=== PATIENT | male | born 1975 | race Caucasian/White ===

== ENCOUNTER 2016-07-01 16:01 | Emergency (ER) | payer OTHER ==
[~2016-07-01] VITALS: Ht 188 cm; Wt 163.3 kg
[~2016-07-01 16:01] MED LIST: ASCO-78 PO; BUPR300T3 PO; CYCL10TA2 PO; IBUP-1060 PO; MULT-245 PO; OXYC-244 PO; ZOLP10TA PO
[2016-07-01 16:43] VITALS: BP 116/59
[2016-07-01] MEDS ORDERED: CYCL10TA2 PO (17:25)
[2016-07-01] MEDS ORDERED: HYDR-971 PO (17:25)
--- NOTE | 2016-07-01 17:25 | PHYS DOC ---
Past Medical History Past Medical History: No Pertinent History Past Surgical History: Other Additional Past Surgical Histo: rotator cuff R shoulder Alcohol Use: None Drug Use: Marijuana Adult General Chief Complaint Chief Complaint: BACK PAIN OR INJURY HPI HPI Patient is a 40 year old male presents the emergency room with a complaint of ongoing, atraumatic back pain since the summer. Patient states he saw his chiropractor at that point for readjustments and felt some relief. Patient states that he saw [facility] on June 29 because of increased pain and tightness in his back and was prescribed hydrocodone and Flexeril for his pain. He states that he was to follow up with his primary care doctor. His primary care doctor's office was not open today. Patient denies any previous back fractures or spinal cord injuries. He states that he does have a history of chronic, recurring back pain without any neurologic involvement. He denies radiation of pain, saddle anesthesia or incontinence of urine or bowel. Review of Systems Review of Systems Constitutional: Denies fever or chills [] Eyes: Denies change in visual acuity, redness, or eye pain [] HENT: Denies nasal congestion or sore throat [] Respiratory: Denies cough or shortness of breath [] Cardiovascular: No additional information not addressed in HPI [] GI: Denies abdominal pain, nausea, vomiting, bloody stools or diarrhea [] : Denies dysuria or hematuria [] Musculoskeletal: Denies back pain or joint pain [] Integument: Denies rash or skin lesions [] Neurologic: Denies headache, focal weakness or sensory changes [] Endocrine: Denies polyuria or polydipsia [] Allergies Allergies Allergies Coded Allergies Type Severity Reaction Last Updated Verified No Known Drug Allergies 07/25/15 No Physical Exam Physical Exam Constitutional: Well developed, well nourished, no acute distress, non-toxic appearance. [] HENT: Normocephalic, atraumatic, bilateral external ears normal, oropharynx moist, no oral exudates, nose normal. [] Eyes: PERRLA, EOMI, conjunctiva normal, no discharge. [] Neck: Normal range of motion, no tenderness, supple, no stridor. [] Cardiovascular:Heart rate regular rhythm, no murmur [] Lungs & Thorax: Bilateral breath sounds clear to auscultation [] Abdomen: Bowel sounds normal, soft, no tenderness, no masses, no pulsatile masses. [] Skin: Warm, dry, no erythema, no rash. [] Back: Back is without any evidence of deformities or skin lesions. There is pant tenderness to patient's back from the level of L1-L5. There is no palpable defect, deformity or active spasm. Extremities: No tenderness, no cyanosis, no clubbing, ROM intact, no edema. [] Neurologic: Alert and oriented X 3, normal motor function, normal sensory function, no focal deficits noted. Patient ambulates with a steady, unaided gait. Psychologic: Affect normal, judgement normal, mood normal. [] Current Patient Data Vital Signs Vital Signs Date Time Temp Pulse Resp B/P Pulse Ox O2 Delivery O2 Flow Rate FiO2 07/01/16 16:43 98.1 76 18 97 Room Air 98.1 EKG EKG [] Radiology/Procedures Radiology/Procedures [] Course & Med Decision Making Course & Med Decision Making Pertinent Labs and Imaging studies reviewed. (See chart for details) [] Dragon Disclaimer Dragon Disclaimer This electronic medical record was generated, in whole or in part, using a voice recognition dictation system. Departure Departure Impression: Primary Impression: Back pain Disposition: 01 HOME, SELF-CARE Condition: GOOD Referrals: DEMETRA WHIPPLE MD (PCP) Patient Instructions: Chronic Back Pain Additional Instructions: 1. Take the medication as prescribed 2. Review the discharge instructions for reasons to return to the emergency department. 3. Call Dr. Whipple office tomorrow morning to schedule follow-up appointment. Scripts Cyclobenzaprine Hcl 10 Mg Tablet1 Tab PO TID #15 TAB Prov:PAKO TY 07/01/16 Hydrocodone/Apap 5-325 ([place] 5-325 Tablet)1 Each Tablet2 Tab PO PRN Q6HRS PRN PAIN #14 TAB Prov:PAKO TY 07/01/16 PAKO TY Jul 01, 2016 17:25
== END 2016-07-01 17:36 | disposition home or self-care (01) ==
LOC: ER 16:01
DX: M54.5 Low back pain (principal); F12.10 Cannabis abuse, uncomplicated
CPT/HCPCS: 99283

== ENCOUNTER 2018-08-29 21:54 | Emergency (ER) | payer SELFPAY ==
[~2018-08-29] VITALS: Ht 182.9 cm; Wt 163.3 kg
[~2018-08-29 21:54] MED LIST changes: +HYDR-3164 PO; -OXYC-244 PO; +OXYC1TAB19 PO
[2018-08-29 22:00] VITALS: BP 157/77
--- NOTE | 2018-08-29 22:33 | PHYS DOC ---
Past Medical History Past Medical History: No Pertinent History (RAVI TORRES APRN) Past Surgical History: Other Additional Past Surgical Histo: rotator cuff R shoulder (RAVI TORRES APRN) Alcohol Use: None Drug Use: Marijuana (RAVI TORRES APRN) Adult General Chief Complaint Chief Complaint: LACERATION/AVULSION HPI HPI Patient is a 43 year old male who presents with left index finger knuckle laceration that occurred while working with an angle machine grinder. Patient is right- handed. (RAVI TORRES APRN) Review of Systems Review of Systems Constitutional: Denies fever or chills [] Musculoskeletal: Left index finger knuckle laceration Integument: Denies rash or skin lesions [] Neurologic: Denies headache, focal weakness or sensory changes [] All other systems were reviewed and found to be within normal limits, except as documented in this note. (RAVI TORRES APRN) Current Medications Current Medications Current Medications Medications (Trade) Dose Ordered Sig/Rebeca Start Time Stop Time Status Last Admin Dose Admin Ceftriaxone Sodium (Rocephin Im) 1 gm 1X ONCE 08/29/18 23:00 08/29/18 23:01 DC 08/29/18 22:45 1 GM Diphtheria/ Tetanus/Acell Pertussis (Boostrix) 0.5 ml ONCE ONCE 08/29/18 23:00 08/29/18 23:01 DC 08/29/18 22:46 0.5 ML Lidocaine HCl (Lidocaine 1% 20ml Vial) 20 ml 1X ONCE 08/29/18 23:00 08/29/18 23:01 DC 08/29/18 22:50 20 ML (BOUBACAR LAW DO) Allergies Allergies Allergies Coded Allergies Type Severity Reaction Last Updated Verified No Known Drug Allergies 07/25/15 No (BOUBACAR LAW DO) Physical Exam Physical Exam Constitutional: Well developed, well nourished, no acute distress, non-toxic appearance. [] Back: No tenderness, no CVA tenderness. [] Extremities: Left index finger knuckle with a laceration approximately 3 cm long , there is obvious tendon disruption. Patient is able to flex and extend the finger. Adequate radial sensation to the left index finger, +2 left radial pulse. Cap refill less than 2 seconds to the left Index finger Neurologic: Alert and oriented X 3, normal motor function, normal sensory function, no focal deficits noted. Psychologic: Affect normal, judgement normal, mood normal. [] (RAVI TORRES APRN) Current Patient Data Vital Signs Vital Signs Date Time Temp Pulse Resp B/P (MAP) Pulse Ox O2 Delivery O2 Flow Rate FiO2 08/29/18 22:00 98.6 89 20 157/77 (103) 98 Room Air 98.6 (BOUBACAR LAW DO) EKG EKG [] (RAVI TORRES APRN) Radiology/Procedures Radiology/Procedures Laceration/Wound Repair Wound Location: Left hand laceration Wound's Depth, Shape horizontal Wound Length (cm): Approximately 4 cm Wound Explored: clean Irrigated w/ Saline (ccs): 1000 Betadine Prep?: Yes Anesthesia: 1% of lidocaine Volume Anesthetic (ccs): Approximately 5 mL Wound Repaired With: Ethilon Suture Size/Type: 5.0/interrupted sutures Number of Sutures: 8 Progress : Wound was covered with nonstick dressing, Velcro splint applied by me. (RAVI TORRES APRN) Course & Med Decision Making Course & Med Decision Making Pertinent Labs and Imaging studies reviewed. (See chart for details) This is a 43-year-old male patient presenting to the ED today with left hand laceration with tendon disruption. Consulted with Dr. Law. Left hand x-rays are negative for any acute findings. Tetanus updated, given Rocephin 1 g in the ED. Discharged with cephalexin. Provided hand surgeon at [facility] to contact and follow-up on Friday. Left hand was placed in a splint by ga, neurovascular exam pre-and post splint application is normal. (RAVI TORRES APRN) Dragon Disclaimer Dragon Disclaimer This electronic medical record was generated, in whole or in part, using a voice recognition dictation system. (RAVI TORRES APRN) Departure Departure Impression: Primary Impression: Laceration of hand Additional Impression: Extensor tendon disruption Disposition: 01 HOME, SELF-CARE Condition: STABLE Referrals: DEMETRA WHIPPLE MD (PCP) Please call hand surgeon on Friday at and set up a follow up appointment Patient Instructions: Laceration Care, Adult Additional Instructions: You have left hand laceration with a tendon tear. Please contact hand surgeon on Friday morning and set up a follow-up appointment. Complete your prescribed antibiotics. Come back to the ED at any point wound condition worsens. Scripts Cephalexin (CEPHALEXIN) 500 Mg Tablet 1 TAB PO QID, #40 TAB Prov: RAVI TORRES OLI 08/29/18 Attending Signature Attending Signature I have reviewed the PA/HOUSING RELOCATION's note and plan of care. I was available for consultation as needed during the patient's visit in the emergency department. I agree with the clinical impression, plan, and disposition. (BOUBACAR LAW DO) Problem Qualifiers Primary Impression: Laceration of hand Encounter type: initial encounter Foreign body presence: without foreign body Laterality: left Qualified Codes: S61.412A - Laceration without foreign body of left hand, initial encounter IDAJOHNNYRAVI APRN Aug 29, 2018 22:33 BOUBACAR LAW DO Aug 30, 2018 04:32
[2018-08-29] MEDS ORDERED: cefTRIAXone IM 1 GM VIAL IM ONE (23:00)
[2018-08-29] MEDS ORDERED: DIPHTH,PERTUSS(ACELL),TET TOX 0.5 ML DISP.SYRIN. VAX IM ONE (23:00)
[2018-08-29] MEDS ORDERED: LIDOCAINE 1% Multi-Dose 20 ML VIAL. INJ ONE (23:00)
--- NOTE | 2018-08-29 23:05 | RAD ---
3 views left hand dated 08/29/2018. No comparison available. CLINICAL INDICATION: Pain after injury. FINDINGS: 3 views left hand show normal bony alignment. No displaced fracture. No acute osseous or articular abnormality. Small soft tissue defect near the second MCP joint without radiopaque foreign body. IMPRESSION: No acute bony abnormality. Electronically signed by: Tom Nielsen MD (08/29/2018 11:02 PM) [facility]
[2018-08-29] MEDS ORDERED: CEPH500T PO (23:55)
== END 2018-08-29 23:58 | disposition home or self-care (01) ==
LOC: ER 21:54
DX: S66.321A Laceration of extensor muscle, fascia and tendon of left index finger at wrist and hand level, initial encounter (principal); W31.89XA Contact with other specified machinery, initial encounter; Y93.89 Activity, other specified; Y92.89 Other specified places as the place of occurrence of the external cause; Y99.0 Civilian activity done for income or pay
CPT/HCPCS: 12002; 73130; 90471; 90715; 96372; 99283; J0696; 99284

== ENCOUNTER 2018-10-26 12:58 | Emergency (ER) | payer SELFPAY ==
[~2018-10-26] VITALS: Ht 188 cm; Wt 139.3 kg
[~2018-10-26 12:58] MED LIST changes: +CEPH500T PO
[2018-10-26 13:32] VITALS: BP 157/77
[2018-10-26] MEDS ORDERED: MORPHINE SULFATE 10 MG/ML VIAL. SQ ONE (14:00)
[2018-10-26] MEDS ORDERED: METH4TAB2 PO (14:04)
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
== END 2018-10-26 14:16 | disposition home or self-care (01) ==
LOC: ER 12:58
DX: M54.42 Lumbago with sciatica, left side (principal); M54.41 Lumbago with sciatica, right side; G89.29 Other chronic pain
CPT/HCPCS: 96372; 99284; J2270

== ENCOUNTER 2018-11-02 20:12 | Emergency (ER) | payer SELFPAY ==
[~2018-11-02] VITALS: Ht 188 cm; Wt 138.3 kg
[~2018-11-02 20:12] MED LIST changes: +METH4TAB2 PO
[2018-11-02 20:30] VITALS: BP 149/80
[2018-11-02] MEDS ORDERED: CYCLOBENZAPRINE 10 MG TABLET. PO ONE (22:30)
--- NOTE | 2018-11-02 22:45 | RAD ---
EXAM: Left shoulder, 3 views. HISTORY: Pain. COMPARISON: None. FINDINGS: 3 views of the left shoulder obtained. There is no fracture, dislocation or subluxation. IMPRESSION: No acute osseous finding. Electronically signed by: Ciera Bruner MD (11/02/2018 10:42 PM) [facility]
[2018-11-02] MEDS ORDERED: AMOX1TAB61 PO (22:55)
--- NOTE | 2018-11-02 22:57 | PHYS DOC ---
Past Medical History Past Medical History: MRSA, Sciatica, Other Additional Past Medical Histor: CHRONIC BACK PAIN Past Surgical History: Other Additional Past Surgical Histo: rotator cuff R shoulder, CARPAL TUNNEL Alcohol Use: None Drug Use: Marijuana Adult General Chief Complaint Chief Complaint: BACK PAIN OR INJURY [facility] HPI Patient is a 43-year-old male who presents with left shoulder pain since yesterday. He describes the pain as throbbing and sharp and rates it 8 out of 10. He denies any associated symptoms however he does state that he is had some ear pain for a week. He has not taken anything prior to arrival. Review of Systems Review of Systems Constitutional: Denies fever or chills [] Eyes: Denies change in visual acuity, redness, or eye pain [] HENT: Denies nasal congestion or sore throat. Reports L ear "clogging". Respiratory: Denies cough or shortness of breath [] Cardiovascular: No additional information not addressed in HPI [] GI: Denies abdominal pain, nausea, vomiting, bloody stools or diarrhea [] : Denies dysuria or hematuria [] Musculoskeletal: Denies back pain. Reports L shoulder pain. Integument: Denies rash or skin lesions [] Neurologic: Denies headache, focal weakness or sensory changes [] Endocrine: Denies polyuria or polydipsia [] Complete systems were reviewed and found to be within normal limits, except as documented in this note. Current Medications Current Medications Current Medications Medications (Trade) Dose Ordered Sig/Rebeca Start Time Stop Time Status Last Admin Dose Admin Cyclobenzaprine HCl (Flexeril) 10 mg 1X ONCE 11/02/18 22:30 11/02/18 22:31 DC 11/02/18 22:45 10 MG Allergies Allergies Allergies Coded Allergies Type Severity Reaction Last Updated Verified No Known Drug Allergies 07/25/15 No Physical Exam Physical Exam Constitutional: Well developed, well nourished, no acute distress, non-toxic appearance. [] HENT: Normocephalic, atraumatic, bilateral external ears normal, L tympanic membrane is bulging and red, oropharynx moist, no oral exudates, nose normal. [] Eyes: PERRLA, EOMI, conjunctiva normal, no discharge. [] Neck: Normal range of motion, no tenderness, supple, no stridor. [] Cardiovascular:Heart rate regular rhythm, no murmur [] Lungs & Thorax: Bilateral breath sounds clear to auscultation [] Abdomen: Bowel sounds normal, soft, no tenderness, no masses, no pulsatile masses. [] Skin: Warm, dry, no erythema, no rash. [] Back: No tenderness, no CVA tenderness. [] Extremities: No tenderness, no cyanosis, no clubbing, ROM reduced L shoulder, no edema. [] Neurologic: Alert and oriented X 3, normal motor function, normal sensory function, no focal deficits noted. [] Psychologic: Affect normal, judgement normal, mood normal. [] Current Patient Data Vital Signs Vital Signs Date Time Temp Pulse Resp B/P (MAP) Pulse Ox O2 Delivery O2 Flow Rate FiO2 11/02/18 20:30 98.9 105 20 149/80 (103) 98 Room Air 98.9 EKG EKG [] Radiology/Procedures Radiology/Procedures []PATIENT: EVELYN PERALES VACCOUNT: [id number]#: [id number] : 1975 LOCATION: ER AGE: 43 SEX: M EXAM STATUS: REG ER ORD. PHYSICIAN: BOUBACAR COY APRN REASON: pain PROCEDURE: SHOULDER 2+V LEFT EXAM: Left shoulder, 3 views. HISTORY: Pain. COMPARISON: None. FINDINGS: 3 views of the left shoulder obtained. There is no fracture, dislocation or subluxation. IMPRESSION: No acute osseous finding. Electronically signed by: Ciera Bruner MD (11/02/2018 10:42 PM) [facility] Course & Med Decision Making Course & Med Decision Making Pertinent Labs and Imaging studies reviewed. (See chart for details) Discussed with patients his signs and symptoms. Will order x-ray and give flexeril. Patient is agreeable to plan of care. X-rays negative will refer to ortho for further workup on his shoulder. Patient is agreeable. Dragon Disclaimer Dragon Disclaimer This electronic medical record was generated, in whole or in part, using a voice recognition dictation system. Departure Departure Impression: Primary Impression: Shoulder pain, acute Additional Impression: Otitis media Disposition: 01 HOME, SELF-CARE Condition: STABLE Referrals: DEMETRA WHIPPLE MD (PCP) KAYLA AYALA II, MD Patient Instructions: Otitis Media, Adult, Xity-di-Lecu, Shoulder Exercises, Generic, SportsMed Additional Instructions: Please follow up with orthopedics or your primary care doctor if the pain continues. Take over the counter ibuprofen as needed for pain. If symptoms worsen come back to ER. Scripts Amoxicillin/Potassium Clav (AUGMENTIN 875-125 TABLET) 1 Each Tablet 1 TAB PO BID, #14 TAB Prov: BOUBACAR COY APRN 11/02/18 Problem Qualifiers Primary Impression: Shoulder pain, acute Laterality: left Qualified Codes: M25.512 - Pain in left shoulder Additional Impression: Otitis media Otitis media type: suppurative Chronicity: acute Laterality: left Recurrence: not specified as recurrent Spontaneous tympanic membrane rupture: without spontaneous rupture Qualified Codes: H66.002 - Acute suppurative otitis media without spontaneous rupture of ear drum, left ear BOUBACAR COY APRN November 02, 2018 22:57
== END 2018-11-02 23:13 | disposition home or self-care (01) ==
LOC: ER 20:12
DX: M25.512 Pain in left shoulder (principal); H66.002 Acute suppurative otitis media without spontaneous rupture of ear drum, left ear; G89.29 Other chronic pain
CPT/HCPCS: 73030; 99284

== ENCOUNTER 2018-11-28 04:16 | Emergency (ER) | payer SELFPAY ==
[~2018-11-28] VITALS: Ht 188 cm; Wt 138.3 kg
[~2018-11-28 04:16] MED LIST changes: +AMOX1TAB61 PO
[2018-11-28 04:27] VITALS: BP 161/86
[2018-11-28] MEDS ORDERED: PRED20TA PO (05:13)
[2018-11-28] MEDS ORDERED: LIDO700A39 TP (05:13)
[2018-11-28] MEDS ORDERED: ORPH100T PO (05:13)
[2018-11-28] MEDS ORDERED: HYDR-3164 PO (05:13)
--- NOTE | 2018-11-28 05:13 | PHYS DOC ---
Past Medical History Past Medical History: MRSA, Sciatica, Other Additional Past Medical Histor: CHRONIC BACK PAIN Past Surgical History: Other Additional Past Surgical Histo: rotator cuff R shoulder, CARPAL TUNNEL Alcohol Use: Rarely Drug Use: Marijuana Adult General Chief Complaint Chief Complaint: BACK INJURY [facility] HPI Patient is a 43 year old [f__sex] who presents with [] Review of Systems Review of Systems Constitutional: Denies fever or chills [] Eyes: Denies change in visual acuity, redness, or eye pain [] HENT: Denies nasal congestion or sore throat [] Respiratory: Denies cough or shortness of breath [] Cardiovascular: No additional information not addressed in HPI [] GI: Denies abdominal pain, nausea, vomiting, bloody stools or diarrhea [] : Denies dysuria or hematuria [] Musculoskeletal: Denies back pain or joint pain [] Integument: Denies rash or skin lesions [] Neurologic: Denies headache, focal weakness or sensory changes [] Endocrine: Denies polyuria or polydipsia [] All other systems were reviewed and found to be within normal limits, except as documented in this note. Allergies Allergies Allergies Coded Allergies Type Severity Reaction Last Updated Verified No Known Drug Allergies 07/25/15 No Physical Exam Physical Exam Constitutional: Well developed, well nourished, no acute distress, non-toxic appearance. [] HENT: Normocephalic, atraumatic, bilateral external ears normal, oropharynx moist, no oral exudates, nose normal. [] Eyes: PERRLA, EOMI, conjunctiva normal, no discharge. [] Neck: Normal range of motion, no tenderness, supple, no stridor. [] Cardiovascular:Heart rate regular rhythm, no murmur [] Lungs & Thorax: Bilateral breath sounds clear to auscultation [] Abdomen: Bowel sounds normal, soft, no tenderness, no masses, no pulsatile masses. [] Skin: Warm, dry, no erythema, no rash. [] Back: No tenderness, no CVA tenderness. [] Extremities: No tenderness, no cyanosis, no clubbing, ROM intact, no edema. [] Neurologic: Alert and oriented X 3, normal motor function, normal sensory function, no focal deficits noted. [] Psychologic: Affect normal, judgement normal, mood normal. [] Current Patient Data Vital Signs Vital Signs Date Time Temp Pulse Resp B/P (MAP) Pulse Ox O2 Delivery O2 Flow Rate FiO2 11/28/18 04:27 99.5 93 21 161/86 (111) 97 Room Air 99.5 EKG EKG [] Radiology/Procedures Radiology/Procedures [] Course & Med Decision Making Course & Med Decision Making Pertinent Labs and Imaging studies reviewed. (See chart for details) [] Dragon Disclaimer Dragon Disclaimer This electronic medical record was generated, in whole or in part, using a voice recognition dictation system. Departure Departure Impression: Primary Impression: Chronic back pain Disposition: HOME, SELF-CARE Condition: STABLE Referrals: DEMETRA WHIPPLE MD (PCP) MÓNICA TUBBS MD Patient Instructions: Chronic Back Pain, Chronic Pain Management, Sciatica, Ea sy-to-Read Scripts Lidocaine (Lidocaine) 1 Each Adh..patch 1 EACH TP Q12HR PRN for PAIN, #10 PATCH Apply new patch to affected area and leave on for first 12 hours. Remove for next 12 hours before applying new patch. Repeat. Prov: BOUBACAR LAW DO 11/28/18 Orphenadrine Citrate (ORPHENADRINE CITRATE) 100 Mg Tablet.er 100 MG PO BID PRN for MUSCLE SPASMS, #14 Prov: BOUBACAR LAW DO 11/28/18 Prednisone (PREDNISONE) 20 Mg Tablet 2 TAB PO DAILY, #8 TAB Start this medication tomorrow, Friday11/29/18 Prov: BOUBACAR LAW DO 11/28/18 Hydrocodone/Apap 5-325 ([place] 5-325 TABLET) 1 Each Tablet 1 TAB PO PRN Q6HRS PRN for PAIN, #14 TAB 0 Refills Prov: BOUBACAR LAW DO 11/28/18 Problem Qualifiers Primary Impression: Chronic back pain Back pain location: low back pain Back pain laterality: bilateral Sciatica presence: with sciatica Sciatica laterality: sciatica of right side Qualified Codes: M54.41 - Lumbago with sciatica, right side; G89.29 - Other chronic pain BOUBACAR LAW DO Nov 28, 2018 05:13
[2018-11-28] MEDS ORDERED: KETOROLAC 30 MG/ML VIAL. IM ONE (05:30)
[2018-11-28] MEDS ORDERED: LIDOCAINE (700MG/PATCH) PATCH. TD ONE (05:30)
[2018-11-28] MEDS ORDERED: DEXAMETHASONE 4 MG TABLET PO ONE (05:30)
[2018-11-28] MEDS ORDERED: PATCH REMOVAL. MC SCH (21:00)
== END 2018-11-28 05:40 | disposition home or self-care (01) ==
LOC: ER 04:16
DX: M54.41 Lumbago with sciatica, right side (principal); G89.29 Other chronic pain
CPT/HCPCS: 96372; 99283; J1885; J8540

== ENCOUNTER 2020-04-16 13:25 | Emergency (ER) | payer OTHER ==
[~2020-04-16] VITALS: Ht 188 cm; Wt 155.0 kg
[~2020-04-16 13:25] MED LIST changes: +LIDO700A21 TP; +ORPH100T PO; +PRED20TA PO
[2020-04-16 13:52] VITALS: BP 157/77
--- NOTE | 2020-04-16 14:27 | RAD ---
PROCEDURE: FOOT RIGHT 3V STUDY DATE: 04/16/2020 CLINICAL INDICATION / HISTORY: Reason: R foot pain after stepping on a nail yesterday afternoon / Spl. Instructions: / History: . TECHNIQUE: AP, lateral and oblique views of the right foot. COMPARISON: None FINDINGS: No fracture or dislocation is identified. The bone density is normal. The joint space widths are maintained, and there are no erosions. Achilles enthesophytes and tiny calcaneal spur is seen. Minimal degenerative changes at the tibiotalar joint are also noted with small osteophyte at the anterior and tibial margin. No soft tissue abnormality is seen. IMPRESSION: 1. No acute osseous abnormality. 2. No retained radiopaque foreign body in the soft tissues. Electronically signed by: Pelon Bermudez MD (04/16/2020 2:23 PM) [id number]
[2020-04-16] MEDS ORDERED: HYDR-2761 PO (14:39)
[2020-04-16] MEDS ORDERED: CLIN150C14 PO (14:39)
--- NOTE | 2020-04-16 14:39 | ED.ADGEN ---
Past Medical History Past Medical History: Hypertension, MRSA, Sciatica, Other Additional Past Medical Histor: CHRONIC BACK PAIN Past Surgical History: Other Additional Past Surgical Histo: rotator cuff R shoulder, CARPAL TUNNEL Smoking Status: Current Every Day Smoker Alcohol Use: Occasionally Drug Use: Marijuana General Adult EDM: Chief Complaint: FOOT INJURY PAIN HPI: HPI: Patient is a 44 year old male who presents to the emergency department with complaints of pain in his right foot after he stepped on a nail yesterday. Patient reports his last tetanus shot was less than 5 years ago. He denies any numbness, tingling, or weakness of the affected foot he reports redness, warmth, and purulent drainage from the site this morning. He reports increased pain with weightbearing. He currently rates pain 8 out of 10 on the pain scale, he denies any alleviating factors, the pain is worse with palpation and weightbearing. Review of Systems: Review of Systems: Complete ROS is negative unless otherwise noted in HPI. Allergies: Allergies: Allergies Coded Allergies Type Severity Reaction Last Updated Verified No Known Drug Allergies 07/25/15 No Physical Exam: PE: See Above Constitutional: Well developed, well nourished, no acute distress, non-toxic appearance, morbidly obese. [] HENT: Normocephalic, atraumatic, bilateral external ears normal, nose normal. [] Eyes: PERRLA, EOMI, conjunctiva normal, no discharge. [] Neck: Normal range of motion, no stridor. [] Cardiovascular:Heart rate regular rhythm Lungs & Thorax: Respirations even and unlabored, no retractions, no respiratory distress Skin: Warm, dry, no erythema, no rash; 0.25 cm puncture wound noted to the right midfoot proximal to the fifth toe, no visible foreign body, with localized edema, erythema, and warmth consistent with puncture wound from nail; no streaking up the leg. [] Extremities: Right foot: Tenderness to palpation at the puncture site, no obvious deformity, no crepitus, no cyanosis, ROM intact, 1+ edema. [] Neurologic: Alert and oriented X 3, no focal deficits noted. [] Psychologic: Affect normal, judgement normal, mood normal. [] Current Patient Data: Vital Signs: Vital Signs Date Time Temp Pulse Resp B/P (MAP) Pulse Ox O2 Delivery O2 Flow Rate FiO2 04/16/20 13:52 97.4 77 18 157/77 (103) 95 Room Air 97.4 EKG: EKG: [] Heart Score: Risk Factors: Risk Factors: DM, Current or recent (<one month) smoker, HTN, HLP, family his tory of CAD, obesity. Risk Scores: Score 0 - 3: 2.5% MACE over next 6 weeks - Discharge Home Score 4 - 6: 20.3% MACE over next 6 weeks - Admit for Clinical Observation Score 7 - 10: 72.7% MACE over next 6 weeks - Early Invasive Strategies Radiology/Procedures: Radiology/Procedures: PROCEDURE: FOOT RIGHT 3V PROCEDURE: FOOT RIGHT 3V STUDY DATE: 04/16/2020 CLINICAL INDICATION / HISTORY: Reason: R foot pain after stepping on a nail yesterday afternoon / Spl. Instructions: / History: . TECHNIQUE: AP, lateral and oblique views of the right foot. COMPARISON: None FINDINGS: No fracture or dislocation is identified. The bone density is normal. The joint space widths are maintained, and there are no erosions. Achilles enthesophytes and tiny calcaneal spur is seen. Minimal degenerative changes at the tibiotalar joint are also noted with small osteophyte at the anterior and tibial margin. No soft tissue abnormality is seen. IMPRESSION: 1. No acute osseous abnormality. 2. No retained radiopaque foreign body in the soft tissues.[] Course & Med Decision Making: Course & Med Decision Making Pertinent Labs and Imaging studies reviewed. (See chart for details) [] Dragon Disclaimer: Dragon Disclaimer: This electronic medical record was generated, in whole or in part, using a voice recognition dictation system. Departure Departure Impression: Primary Impression: Puncture wound of right foot excluding toes with infection Additional Impressions: Nail entering through skin, initial encounter Nail wound of right foot Disposition: 01 DC HOME SELF CARE/HOMELESS Condition: STABLE Referrals: DEMETRA WHIPPLE MD (PCP) Patient Instructions: Puncture Wound, [id number] Additional Instructions: Fill prescription(s) and use as directed. Ibuprofen as needed for pain/fever. Increase clear fluids. Avoid triggers such as smoke, fragrance, dust, and pollen. Follow-up with your primary care doctor as needed. Return to the ER if symptoms worsen, you develop a fever, increased redness streaking up your leg. Scripts Ciprofloxacin Hcl (CIPRO) 500 Mg Tablet 1 TAB PO BID for 7 Days, #14 TAB 0 Refills Prov: TRAVIS HUERTA SILICA DRY PRESS HELPER 04/16/20 Hydrocodone Bit/Acetaminophen (HYDROCODONE-APAP 5-325 ) 1 Tab Tablet 0.5-1 TAB PO PRN Q6HRS PRN for SEVERE PAIN 7-10, #10 TAB 0 Refills Prov: TRAVIS HUERTA APRN 04/16/20 Clindamycin Hcl (CLINDAMYCIN HCL) 150 Mg Capsule 450 MG PO TID for 7 Days, #63 CAP 0 Refills Prov: TRAVIS HUERTA APRN 04/16/20 Problem Qualifiers Primary Impression: Puncture wound of right foot excluding toes with infection Encounter type: initial encounter Qualified Codes: S91.331A - Puncture wound without foreign body, right foot, initial encounter; L08.9 - Local infection of the skin and subcutaneous tissue, unspecified Additional Impressions: Nail wound of right foot Encounter type: initial encounter Qualified Codes: S91.331A - Puncture wound without foreign body, right foot, initial encounter TRAVIS HUERTA SILICA [employer]Y PRESS HELPER Apr 16, 2020 14:39
[2020-04-16] MEDS ORDERED: CIPR500T94 PO (20:29)
== END 2020-04-16 15:17 | disposition home or self-care (01) ==
LOC: ER 13:25
DX: S91.331A Puncture wound without foreign body, right foot, initial encounter (principal); R60.0 Localized edema; I10 Essential (primary) hypertension; G89.29 Other chronic pain; F17.200 Nicotine dependence, unspecified, uncomplicated; F12.90 Cannabis use, unspecified, uncomplicated; Z98.890 Other specified postprocedural states; Z86.14 Personal history of Methicillin resistant Staphylococcus aureus infection; W22.8XXA Striking against or struck by other objects, initial encounter; Y93.89 Activity, other specified; Y92.89 Other specified places as the place of occurrence of the external cause; Y99.8 Other external cause status
CPT/HCPCS: 73630; 99283

== ENCOUNTER 2020-07-12 19:43 | Emergency (ER) | payer OTHER ==
[~2020-07-12] VITALS: Ht 188 cm; Wt 160.4 kg
[~2020-07-12 19:43] MED LIST changes: +CIPR500T94 PO; +CLIN150C15 PO; +HYDR-2761 PO
--- NOTE | 2020-07-12 20:54 | PHYS DOC ---
Past Medical History Past Medical History: No Pertinent History Additional Past Medical Histor: CHRONIC BACK PAIN (BOUBACAR MULLINS APRN) Past Surgical History: Other Additional Past Surgical Histo: back sx, shoulder sx. (BOUBACAR MULLINS APRN) Smoking Status: Current Every Day Smoker Alcohol Use: Occasionally Drug Use: Marijuana (BOUBACAR MULLINS APRN) General Adult EDM: Chief Complaint: UPPER EXTREMITY PAIN HPI: HPI: Patient is a 45 year old male presents emergency department complaining that he stumbled and fell on the floor catching his fall with his hands forward feeling his right wrist pop. Patient states that he thinks he may have broken it. Patient reports pain in his wrist and distal forearm area. Patient denies taking anything for his pain prior to being seen in the ER today. Patient denies any allergies to medications. Patient states the only thing he did was put ice on his wrist. Patient denies any other pain to his upper or lower extremities. Patient denies hitting his head, denies neck pain, denies back pain. Patient denies any numbness or tingling to his right hand. Patient d enies any other physical complaints or physical symptoms. (BOUBACAR MULLINS APRN) Review of Systems: Review of Systems: 14 body systems of review of systems have been reviewed. See HPI for pertinent positives and negative responses, otherwise all other systems are negative, nonpertinent or noncontributory. (BOUBACAR MULLINS APRN) Heart Score: Risk Factors: Risk Factors: DM, Current or recent (<one month) smoker, HTN, HLP, family history of CAD, obesity. Risk Scores: Score 0 - 3: 2.5% MACE over next 6 weeks - Discharge Home Score 4 - 6: 20.3% MACE over next 6 weeks - Admit for Clinical Observation Score 7 - 10: 72.7% MACE over next 6 weeks - Early Invasive Strategies (BOUBACAR MULLISN APRN) Allergies: Allergies: Allergies Coded Allergies Type Severity Reaction Last Updated Verified No Known Drug Allergies 07/25/15 No (BOUBACAR MULLINS APRN) Physical Exam: PE: Constitutional: Well developed, well nourished, no acute distress, non-toxic appearance. HENT: Normocephalic, atraumatic, bilateral external ears normal, oropharynx moist, no oral exudates, nose normal. Eyes: PERRLA, EOMI, conjunctiva normal, no discharge. Neck: Normal range of motion, no tenderness, supple, no stridor. Cardiovascular:Heart rate regular rhythm, no murmur Lungs & Thorax: Bilateral breath sounds clear to auscultation Abdomen: Bowel sounds normal, soft, no tenderness, no masses, no pulsatile masses. Skin: Warm, dry, no erythema, no rash. Back: No tenderness, no CVA tenderness. Extremities: No tenderness, no cyanosis, no clubbing, ROM intact, no edema. Except for right upper extremity, radial aspect deformity, minimal passive range of motion related to eliciting severe pain during exam. Distal cap refill less than 2 seconds. 2+ radial pulse. Neurologic: Alert and oriented X 3, normal motor function, normal sensory function, no focal deficits noted. Psychologic: Affect normal, judgement normal, mood normal. (BOUBACAR MULLINS APRN) Current Patient Data: Vital Signs: Vital Signs Date Time Temp Pulse Resp B/P (MAP) Pulse Ox O2 Delivery O2 Flow Rate FiO2 07/12/20 19:48 98.7 84 18 156/85 (108) 95 Room Air 98.7 (BOUBACAR MULLINS APRN) EKG: EKG: [] (BOUBACAR MULLINS APRN) Radiology/Procedures: Radiology/Procedures: SEX: M EXAM STATUS: REG ER ORD. PHYSICIAN: BOUBACAR MULLINS APRN REASON: FALL, DEFORMITY SWELLING PROCEDURE: WRIST 3V RIGHT XR FOREARM_RIGHT 2 VIEWS, XR RT WRIST 3VIEWS History: Reason: FALL, DEFORMITY SWELLING / Spl. Instructions: / History: Technique: 2 views right forearm and 3 views right wrist. Comparison: None. Findings: Acute comminuted displaced right distal radial intra-articular fracture with dorsal angulation. Chronic ununited ulnar styloid fracture. Severe distal radial ulnar degenerative changes with calcified intra-articular loose body. Mild first carpal metacarpal triscaphe DJD. Impression: 1. Acute comminuted displaced right distal radial intra-articular fracture. Electronically signed by: Sanjeev Hanley DO (07/12/2020 9:57 PM) [facility] DICTATED and SIGNED BY: SANJEEV HANLEY DO DATE: [id number] 0 SEX: M EXAM STATUS: REG ER ORD. PHYSICIAN: BOUBACAR MULLINS APRN REASON: FALL, DEFORMITY SWELLING PROCEDURE: FOREARM RIGHT XR FOREARM_RIGHT 2 VIEWS, XR RT WRIST 3VIEWS History: Reason: FALL, DEFORMITY SWELLING / Spl. Instructions: / History: Technique: 2 views right forearm and 3 views right wrist. Comparison: None. Findings: Acute comminuted displaced right distal radial intra-articular fracture with dorsal angulation. Chronic ununited ulnar styloid fracture. Severe distal radial ulnar degenerative changes with calcified intra-articular loose body. Mild first carpal metacarpal triscaphe DJD. Impression: 1. Acute comminuted displaced right distal radial intra-articular fracture. Electronically signed by: Sanjeev Hanley DO (07/12/2020 9:57 PM) [facility] DICTATED and SIGNED BY: SANJEEV HANLEY DO DATE: 07/12/200 0 (BOUBACAR MULLINS APRN) Course & Med Decision Making: Course & Med Decision Making Pertinent Labs and Imaging studies reviewed. (See chart for details) 45-year-old male, vital signs reviewed, status post fall at 1900 today complaining of right wrist pain. X-ray imaging was ordered. X-ray imaging interpreted by house radiologist concerning for fracture of distal radius, reviewed imaging and case with ED attending Dr. Corrales who did not recom mend patient needs a reduction, patient was placed in sugar tong OCL type splint and normal anatomical position and sling. Patient was treated in the ED with 2 5/325 Belvue's and ice packs, 75 mg fentanyl was given IM prior to splint application. Patient tolerated splint application well. Patient remained neurovascular intact after splint applied. A disc copy of the x-rays were made and given to the patient so that he may take them to his orthopedic follow-up appointment. Patient gave verbal understanding of discharge home instructions, splint care, prescription medications, follow-up with Ortho this week, return to emergency department precautions and concerns, patient had no further questions or concerns and was discharged home without incident. Patient's right upper extremity remained neurovascular intact at discharge time. Impression: #1 fall #2 distal radius fracture (BOUBACAR MULLINS APRN) Course & Med Decision Making I oversaw on the above date of service of this patient and discussed the care with the HEALTH AND SAFETY DIRECTOR. Patient neurovascularly intact, no acute indication for emergent surgical fixation. I agree with the findings, plan of care, and disposition as documented. (CHRISTINA CORRALES DO) Jagdish Disclaimer: Jagdish Disclaimer: This electronic medical record was generated, in whole or in part, using a voice recognition dictation system. (BOUBACAR MULLINS APRN) Departure Departure Impression: Primary Impression: Fall Qualified Codes: W19.XXXA - Unspecified fall, initial encounter Additional Impression: Radius distal fracture Qualified Codes: S52.501A - Unspecified fracture of the lower end of right radius, initial encounter for closed fracture Disposition: 01 DC HOME SELF CARE/HOMELESS Condition: GOOD Referrals: DEMETRA WHIPPLE MD (PCP) DANITZA LOTT MD ORTHO Patient Instructions: Extremity Fracture Additional Instructions: Please take prescriptions as directed, follow-up with the orthopedic surgeon this week. Return to the emergency department for worsening symptoms or other concerns, please use ice to your broken wrist 15 minutes on 15 minutes off while awake. EMERGENCY DEPARTMENT GENERAL DISCHARGE INSTRUCTIONS Thank you for coming to [facility] Emergency Department (ED) today and trusting us with you care. We trust that you had a positive experience in our Emergency Department. If you wish to speak to the department management, you may call the Director at [phone]. YOUR FOLLOW UP INSTRUCTIONS ARE FOLLOWS: 1. Do you have a private Doctor? If you do not have a private doctor, please ask for a resource list of physicians or clinics that may be able to assist you with follow up care. 2. The Emergency Physicain has interpreted your x-rays. The X-Ray specialist will also review them. If there is a change in the findings, you will be notified in 48 hours when at all possible. 3. A lab test or culture has been done, your results will be reviewed and you will be notified if you need a change in treatment. ADDITIONAL INSTRUCTIONS AND INFORMATION: 1. Your care today has been supervised by a physician who is specially trained in emergency care. Many problems require more than one evaluation for a complete diagnosis and treatment. We recommend that you schedule your follow up appointment as recommended to ensure complete treatment of you illness or injury. If you are unable to obtain follow up care and continue to have a problem, or if your condition worsens, we recommend that you return to the ED. 2. We are not able to safely determine your condition over the phone nor are we able to give sound medical advice over the phone. For these safety reasons, if you call for medical advice we will ask you to come to the ED for further evaluation. 3. If you have any questions regarding these discharge instructions please call the ED at [phone]. SAFETY INFORMATION: In the interest of safety, wellness, and injury prevention; we encourage you to wear your sealbelt, if you smoke; quite smoking, and we encourage family to use a protective helmet for bicycling and other sporting events that present an increased risk for head injury. IF YOUR SYMPTOMS WORSEN OR NEW SYMPTOMS DEVELOP, OR YOU HAVE CONCERNS ABOUT YOUR CONDITION; OR IF YOUR CONDITION WORSENS WHILE YOU ARE WAITING FOR YOUR FOLLOW UP APPOINTMENT; EITHER CONTACT YOUR PRIMARY CARE DOCTOR, THE PHYSICIAN WHOSE NAME AND NUMBER YOU WERE GIVEN, OR RETURN TO THE ED IMMEDIATELY. Scripts Hydrocodone Bit/Acetaminophen (HYDROCODONE-APAP 5-325 ) 1 Tab Tablet 1 TAB PO PRN Q6HRS PRN for PAIN, #20 TAB 0 Refills Prov: BOUBACAR MULLINS APRN 07/12/20 Ibuprofen (IBUPROFEN) 600 Mg Tablet 600 MG PO PRN Q6HRS PRN for INFLAMMATION, #30 TAB 0 Refills Prov: BOUBACAR MULLINS APRN 07/12/20 BOUBACAR MULLINS APRN Jul 12, 2020 20:54 CHRISTINA CORRALES DO Jul 15, 2020 00:22
[2020-07-12] MEDS ORDERED: HYDROcodone/APAP 5/325MG 1 TAB TABLET PO ONE (21:00)
--- NOTE | 2020-07-12 21:59 | RAD ---
XR FOREARM_RIGHT 2 VIEWS, XR RT WRIST 3VIEWS History: Reason: FALL, DEFORMITY SWELLING / Spl. Instructions: / History: Technique: 2 views right forearm and 3 views right wrist. Comparison: None. Findings: Acute comminuted displaced right distal radial intra-articular fracture with dorsal angulation. Chron ic ununited ulnar styloid fracture. Severe distal radial ulnar degenerative changes with calcified in tra-articular loose body. Mild first carpal metacarpal triscaphe DJD. Impression: 1. Acute comminuted displaced right distal radial intra-articular fracture. Electronically signed by: Sanjeev Hanley DO (07/12/2020 9:57 PM) [facility]
--- NOTE | 2020-07-12 21:59 | RAD ---
XR FOREARM_RIGHT 2 VIEWS, XR RT WRIST 3VIEWS History: Reason: FALL, DEFORMITY SWELLING / Spl. Instructions: / History: Technique: 2 views right forearm and 3 views right wrist. Comparison: None. Findings: Acute comminuted displaced right distal radial intra-articular fracture with dorsal angulation. Chron ic ununited ulnar styloid fracture. Severe distal radial ulnar degenerative changes with calcified in tra-articular loose body. Mild first carpal metacarpal triscaphe DJD. Impression: 1. Acute comminuted displaced right distal radial intra-articular fracture. Electronically signed by: Sanjeev Hanley DO (07/12/2020 9:57 PM) [facility]
[2020-07-12] MEDS ORDERED: fentaNYL PF VIAL 100 MCG/2 ML VIAL IM ONE (22:30)
[2020-07-12] MEDS ORDERED: HYDR-2761 PO (23:37)
[2020-07-12] MEDS ORDERED: IBUP-1007 PO (23:37)
[2020-07-12 23:49] VITALS: BP 160/86
== END 2020-07-12 23:49 | disposition home or self-care (01) ==
LOC: ER 19:43
DX: S52.571A Other intraarticular fracture of lower end of right radius, initial encounter for closed fracture (principal); M79.631 Pain in right forearm; G89.29 Other chronic pain; F17.200 Nicotine dependence, unspecified, uncomplicated; F12.90 Cannabis use, unspecified, uncomplicated; Z98.890 Other specified postprocedural states; W18.39XA Other fall on same level, initial encounter; Y93.89 Activity, other specified; Y92.89 Other specified places as the place of occurrence of the external cause; Y99.8 Other external cause status
CPT/HCPCS: 29125; 73090; 73110; 96372; 99284; A4565; J3010

== ENCOUNTER 2021-09-24 00:22 | Emergency (ER) | payer OTHER ==
[~2021-09-24] VITALS: Ht 188 cm; Wt 138.3 kg
[~2021-09-24 00:22] MED LIST changes: -CLIN150C15 PO; +CLIN150C16 PO; +CYCL10TA19 PO; -CYCL10TA2 PO; +IBUP-1007 PO
--- NOTE | 2021-09-24 00:31 | PHYS DOC ---
Past Medical History Past Medical History: No Pertinent History Additional Past Medical Histor: CHRONIC BACK PAIN Past Surgical History: Other Additional Past Surgical Histo: back sx, shoulder sx. Smoking Status: Current Every Day Smoker Alcohol Use: Occasionally Drug Use: Marijuana General Adult EDM: Chief Complaint: OVERDOSE HPI: HPI: History obtained from patient and EMS. Patient is a 46-year-old male with past medical history significant for chronic back pain who presents with concern for opiate overdose. EMS states they were called to the patient's house by his brother. Upon arrival EMS states the patient was prone in the kitchen. They state that he was cyanotic and apneic on arrival. They did administer 1 mg intramuscular Narcan. They state about a minute later he became alert and had spontaneous respirations. Placed on nonrebreather and brought him to the emergency department. On my assessment patient has a GCS 15. He states that he snorted 20 mg of oxycodone just prior to EMS arrival. He states he was taking this in an attempt to self treat chronic back pain. He notes he was doing yard work throughout the day and overdid it. States he was not doing this in an attempt to get high or harm himself. Does note 1 alcoholic drink earlier tonight. Denies any suicidal homicidal ideations. Denies any other recreational drugs today Review of Systems: Review of Systems: Constitutional: Denies fever or chills. [] Eyes: Denies change in visual acuity. [] HENT: Denies nasal congestion or sore throat. [] Respiratory: Apnea Cardiovascular: Denies chest pain or edema. [] GI: Denies abdominal pain, nausea, vomiting, bloody stools or diarrhea. [] : Denies dysuria. [] Musculoskeletal: Denies back pain or joint pain. [] Integument: Denies rash. [] Neurologic: Denies headache, focal weakness or sensory changes. [] Endocrine: Denies polyuria or polydipsia. [] Lymphatic: Denies swollen glands. [] Psychiatric: Denies depression or anxiety. [] Heart Score: C/O Chest Pain: No Risk Factors: Risk Factors: DM, Current or recent (<one month) smoker, HTN, HLP, family history of CAD, obesity. Risk Scores: Score 0 - 3: 2.5% MACE over next 6 weeks - Discharge Home Score 4 - 6: 20.3% MACE over next 6 weeks - Admit for Clinical Observation Score 7 - 10: 72.7% MACE over next 6 weeks - Early Invasive Strategies Allergies: Allergies: Allergies Coded Allergies Type Severity Reaction Last Updated Verified No Known Drug Allergies 07/25/15 No Physical Exam: PE: Constitutional: Well developed, well nourished, no acute distress, non-toxic appearance. [] HENT: Normocephalic, atraumatic, bilateral external ears normal, oropharynx m oist, no oral exudates, nose normal. [] Eyes: PERRLA, EOMI, conjunctiva normal, no discharge. [] Neck: Normal range of motion, no tenderness, supple, no stridor. [] Cardiovascular:Heart rate regular rhythm, no murmur [] Lungs & Thorax: Respiratory rate of 14. No crackles or wheezes appreciated. No signs of cyanosis. 95% on 5 L nasal cannula. Abdomen: Bowel sounds normal, soft, no tenderness, no masses, no pulsatile masses. [] Skin: Warm, dry, no erythema, no rash. [] Back: No tenderness, no CVA tenderness. [] Extremities: No tenderness, no cyanosis, no clubbing, ROM intact, no edema. [] Neurologic: Alert and oriented X 3, normal motor function, normal sensory function, no focal deficits noted. [] Psychologic: Affect normal, judgement normal, mood normal. [] Current Patient Data: Vital Signs: Vital Signs Date Time Temp Pulse Resp B/P (MAP) Pulse Ox O2 Delivery O2 Flow Rate FiO2 09/24/21 00:28 98.8 91 18 182/77 (112) 94 Nasal Cannula 15.0 98.8 Vital Signs Date Time Temp Pulse Resp B/P (MAP) Pulse Ox O2 Delivery O2 Flow Rate FiO2 09/24/21 00:28 98.8 91 18 182/77 (112) 94 Nasal Cannula 15.0 98.8 EKG: EKG: [] Radiology/Procedures: Radiology/Procedures: [facility] [address] [place] [address] IMAGING REPORT Signed PATIENT: EVELYN PERALES V ACCOUNT: [id number] : 1975 LOCATION: ER AGE: 46 SEX: M EXAM STATUS: PRE ER ORD. PHYSICIAN: MATT WELDON DO REASON: eval for post narcan edema PROCEDURE: CHEST AP ONLY EXAMINATION: XR CHEST 1V CLINICAL HISTORY: Post-Narcan edema. EXAM DATE/TIME: 09/24/2021 12:51 AM COMPARISON: None FINDINGS: Lines, Tubes, and Devices: None. Cardiomediastinal Silhouette: Within normal limits. Lungs and Pleura: Mild diffuse interstitial opacities, greatest in the lower lobes, and mild patchy opacities in the lower lung zones. No evidence of pleural effusion or pneumothorax. Bones and Soft Tissues: Degenerative changes in the thoracic spine. IMPRESSION: Findings suspicious for mild pulmonary edema. Electronically signed by: Messi Denis DO (09/24/2021 1:50 AM) [facility] DICTATED and SIGNED BY: MESSI DENIS DO DATE: 09/24/21 0149 [] Course & Med Decision Making: Course & Med Decision Making Pertinent Labs and Imaging studies reviewed. (See chart for details) [] Patient is a 46-year-old male who presents via EMS due to concern for unintentional opiate overdose. He does tell me that he snorted 20 mg of oxycodone just prior to arrival in an attempt to relieve pain. Did receive 1 mg of intramuscular Narcan by EMS with improvement of his clinical status. Patient was able to be titrated down from nonrebreather on arrival to 6 L nasal cannula. He still has an oxygenation of anywhere from 92 to 90%. Given my concern for possible pulmonary edema status post Narcan administration chest x- ray was performed. Does show mild pulmonary edema. Patient has continued to maintain 6 L nasal cannula oxygen requirement. I do feel he may be experiencing prolonged hypoxia due to pulmonary edema. IV Lasix will be administered. He shows no signs of bradypnea however given his borderline oxygen level additional 0.4 mg of IV Narcan was administered. Overall I do feel he benefit from observation for resolution of his pulmonary edema and oxygen requirement. Case discussed with hospitalist who agrees with plan for admission. Jagdish Disclaimer: Jagdish Disclaimer: This electronic medical record was generated, in whole or in part, using a voice recognition dictation system. Departure Departure Impression: Primary Impression: Non-cardiogenic pulmonary edema Additional Impressions: Opiate overdose Qualified Codes: T40.601A - Poisoning by unspecified narcotics, accidental (unintentional), initial encounter Respiratory failure Qualified Codes: J96.01 - Acute respiratory failure with hypoxia Disposition: 09 ADMITTED INPATIENT Condition: STABLE Referrals: DEMETRA WHIPPLE MD (PCP) MATT WELDON DO Sep 24, 2021 00:31
[2021-09-24] MEDS ORDERED: ONDANSETRON PF 4 MG/2 ML VIAL. IVP ONE (01:00)
--- NOTE | 2021-09-24 01:52 | RAD ---
EXAMINATION: XR CHEST 1V CLINICAL HISTORY: Post-Narcan edema. EXAM DATE/TIME: 09/24/2021 12:51 AM COMPARISON: None FINDINGS: Lines, Tubes, and Devices: None. Cardiomediastinal Silhouette: Within normal limits. Lungs and Pleura: Mild diffuse interstitial opacities, greatest in the lower lobes, and mild patchy o pacities in the lower lung zones. No evidence of pleural effusion or pneumothorax. Bones and Soft Tissues: Degenerative changes in the thoracic spine. IMPRESSION: Findings suspicious for mild pulmonary edema. Electronically signed by: Messi Aj DO (09/24/2021 1:50 AM) DEJUAN
[2021-09-24] MEDS ORDERED: NALOXONE 0.4 MG/ML VIAL. IV ONE (02:00)
[2021-09-24] MEDS ORDERED: ALBUTEROL SULFATE 2.5 MG/3 ML NEBU. NEB ONE (02:00)
[2021-09-24] MEDS ORDERED: ONDANSETRON PF 4 MG/2 ML VIAL. IVP PRN (02:30)
[2021-09-24 02:44] LABS: BASO # 0.1 x10^3/uL (0.0-0.2); BASO % 0 % (0-3); EOS % 0 % (0-3); HEMATOCRIT 42.3 % (39.0-53.0); LYMPH # 0.9 x10^3/uL (1.0-4.8); LYMPH % 6 % (24-48); MEAN CORPUSCULAR HEMOGLOBIN 30 pg (25-35); MEAN CORPUSCULAR HGB CONC 33 g/dL (31-37); MEAN CORPUSCULAR VOLUME 90 fL (79-100); MONO % 6 % (0-9); NEUT # 12.9 x10^3/uL (1.8-7.7); NEUT % 87 % (31-73); PLATELET COUNT 196 x10^3/uL (140-400); RED BLOOD COUNT 4.69 x10^6/uL (4.30-5.70); RED CELL DISTRIBUTION WIDTH 13.2 % (11.5-14.5); WHITE BLOOD COUNT 14.9 x10^3/uL (4.0-11.0)
[2021-09-24 02:54] LABS: CREATININE 0.6 mg/dL (0.7-1.3); GFR 145.7; POTASSIUM 3.4 mmol/L (3.5-5.1)
[2021-09-24] MEDS ORDERED: FUROSEMIDE 40 MG/4 ML VIAL. IVP ONE (03:00)
[2021-09-24 03:24] LABS: % LYMPHS 8 % (24-48); % MONOS 3 % (0-10); % SEGS 89 % (35-66); PLT ESTIMATE ADEQUATE (ADEQUATE)
[2021-09-24] MEDS ORDERED: CALCIUM GLUCONATE 1,000 MG/10 ML VIAL. IVP ONE (03:30)
--- NOTE | 2021-09-24 03:57 | EKG ---
[facility] [address] [place] [address] Test Date: 2021-09-24 Test Time: 02:38:49 Pat Name: EVELYN PERALES Department: Room: Gender: M Backup Administrator: : 1975 Requested By: MATT WELDON Order Number: [id number] Reading MD: Jose Carlos Heard Measurements Intervals [place] Rate: 73 P: 49 SD: 160 QRS: 45 QRSD: 102 T: 44 QT: 420 QTc: 467 Interpretive Statements SINUS RHYTHM LEFT ATRIAL ABNORMALITY ABNORMAL ECG RI6.01 No previous ECG available for comparison Electronically Signed On 09-29-2021 21:54:17 CDT by Jose Carlos Heard
--- NOTE | 2021-09-24 08:32 | PDOC1 ---
History and Physical Date of Admission Date of Admission DATE: 09/24/21 TIME: 08:31 Identification/Chief Complaint Chief Complaint Overdose, hypoxia Source Source: Patient History of Present Illness History of Present Illness Mr Hu is a 46 yo male w/PMHx past medical history significant for chronic back pain, obesity, smoker who presented to ED with concern for opiate overdose. EMS told ED they were called to the patient's house by his brother who was contacted by the patient's 17-year-old and 10-year-old children who found him down in the kitchen. Upon arrival EMS states the patient was prone in the kitchen and cyanotic and apneic, given 1 mg intramuscular Narcan with improvement. Placed on nonrebreather and brought him to the emergency department. He states that he snorted what he alleges was 20 mg of oxycodone just prior to EMS arrival. He notes he was doing yard work throughout the day and overdid it and was just trying to get some rest and pain relief. He he notes he is frequently taken doses as high did not intend to harm himself. Chest radiograph with some pulmonary edema and did require some oxygen 7 L/min to maintain O2 saturations 94%. Some mild leukocytosis noted WBC 14, K3, calcium 6 both replaced. Urine drug screen pending EKG sinus rhythm rate of 73 bpm normal axis and intervals, QTC [address] elevations or TWI Admitted for observation Past Surgical History Past Surgical History: Other (Back surgery) Family History Family History: Hypertension Social History Smoke: 1 pack per day ALCOHOL: social Drugs: Marijuana Current Problem List Problem List Problems Medical Problems: (1) Hypocalcemia Status: Acute (2) Hypokalemia Status: Acute (3) Non-cardiogenic pulmonary edema Status: Acute (4) Opiate overdose Status: Acute (5) Respiratory failure Status: Acute Current Medications Current Medications Current Medications Ondansetron HCl (Zofran) 8 mg 1X ONCE IVP Last administered on 09/24/21at 01:00; Start 09/24/21 at 01:00; Stop 09/24/21 at 01:01; Status DC Albuterol Sulfate (Ventolin Neb Soln) 2.5 mg 1X ONCE NEB Last administered on 09/24/21at 02:30; Start 09/24/21 at 02:00; Stop 09/24/21 at 02:01; Status DC Naloxone HCl (Narcan) 0.4 mg 1X ONCE IV Last administered on 09/24/21at 01:41; Start 09/24/21 at 02:00; Stop 09/24/21 at 02:01; Status DC Furosemide (Lasix) 40 mg 1X ONCE IVP Last administered on 09/24/21at 03:00; Start 09/24/21 at 03:00; Stop 09/24/21 at 03:01; Status DC Ondansetron HCl (Zofran) 4 mg PRN Q8HRS PRN IVP NAUSEA/VOMITING 1ST CHOICE; Start 09/24/21 at 02:30; Stop 09/25/21 at 02:29 Calcium Gluconate (Calcium Gluconate) 2,000 mg 1X ONCE IVP Last administered on 09/24/21at 03:26; Start 09/24/21 at 03:30; Stop 09/24/21 at 03:31; Status DC Active Scripts Active Hydrocodone-Apap 5-325 (Hydrocodone Bit/Acetaminophen) 1 Tab Tablet 1 Tab PO PRN Q6HRS PRN Ibuprofen 600 Mg Tablet 600 Mg PO PRN Q6HRS PRN Cipro (Ciprofloxacin Hcl) 500 Mg Tablet 1 Tab PO BID 7 Days Hydrocodone-Apap 5-325 (Hydrocodone Bit/Acetaminophen) 1 Tab Tablet 0.5-1 Tab PO PRN Q6HRS PRN Clindamycin Hcl 150 Mg Capsule 450 Mg PO TID 7 Days Lidocaine PATCH (Lidocaine) 1 Each Adh..patch 1 Each TP Q12HR PRN Apply new patch to affected area and leave on for first 12 hours. Remove for next 12 hours before applying new patch. Repeat. Orphenadrine Citrate 100 Mg Tablet.er 100 Mg PO BID PRN Prednisone 20 Mg Tablet 2 Tab PO DAILY Start this medication tomorrow, Friday11/29/18 Clayton 5-325 Tablet (Acetaminophen/Hydrocodone Bitart) 1 Each Tablet 1 Tab PO PRN Q6HRS PRN Augmentin 875-125 Tablet (Amoxicillin/Potassium Clav) 1 Each Tablet 1 Tab PO BID Medrol (Methylprednisolone) 4 Mg Tab.ds.pk 1 Pkg PO UD Cephalexin 500 Mg Tablet 1 Tab PO QID Cyclobenzaprine Hcl 10 Mg Tablet 1 Tab PO TID Clayton 5-325 Tablet (Acetaminophen/Hydrocodone Bitart) 1 Each Tablet 2 Tab PO PRN Q6HRS PRN Percocet 7.5-325 Mg Tablet (Oxycodone/Acetaminophen) 1 Each Tablet 1-2 Tab PO PRN Q6HRS PRN Reported Vitamin C (Ascorbate Calcium) 500 Mg Tablet 500 Mg PO DAILY Multi Vitamin Daily (Multivitamin) 1 Each Tablet 1 Each PO DAILY Ambien (Zolpidem Tartrate) 10 Mg Tablet 10 Mg PO HS PRN Cyclobenzaprine Hcl 10 Mg Tablet 10 Mg PO TID PRN Percocet 7.5-325 Mg Tablet (Oxycodone/Acetaminophen) 1 Each Tablet 1 Tab PO PRN Q6HRS PRN Ibuprofen 800 Mg Tablet 800 Mg PO Q6H PRN Wellbutrin Xl (Bupropion Hcl) 300 Mg Tab.er.24h 300 Mg PO DAILY Allergies Allergies: Coded Allergies: No Known Drug Allergies (Unverified , 07/25/15) ROS General: No: Chills, Night Sweats, Fatigue, Malaise, Appetite, Other PSYCHOLOGICAL ROS: YES: Anxiety; No: Behavioral Disorder, Concentration difficultie, Decreased libido, Depression, Disorientation, Hallucinations, Hostility, Irritablity, Memory difficulties, Mood Swings, Obsessive thoughts, Physical abuse, Sexual abuse, Sleep disturbances, Suicidal ideation, Other Eyes: No Blurry vision, No Decreased vision, No Double vision, No Dry eyes, No Excessive tearing, No Eye Pain, No Itchy Eyes, No Loss of vision, No Photophobia, No Scotomata, No Uses contacts, No Uses glasses, No Other HEENT: No: Heacaches, Visual Changes, Hearing change, Nasal congestion, Nasal discharge, Oral lesions, Sinus pain, Sore Throat, Epistaxis, Sneezing, Snoring, Tinnitus, Vertigo, Vocal changes, Other ALLERGY AND IMMUNOLOGY: No: Hives, Insect Bite Sensitivity, Itchy/Watery Eyes, Nasal Congestion, Post Nasal Drip, Seasonal Allergies, Other Hematological and Lymphatic: No: Bleeding Problems, Blood Clots, Blood Transfusions, Brusing, Night Sweats, Pallor, Swollen Lymph Nodes, Other ENDOCRINE: No: Breast Changes, Galactorrhea, Hair Pattern Changes, Hot Flashes, Malaise/lethargy, Mood Swings, Palpitations, Polydipsia/polyuria, Skin Changes, Temperature Intolerance, Unexpected Weight Changes, Other Breast: No New/Changing Breast Lumps, No Nipple changes, No Nipple discharge, No Other Respiratory: No: Cough, Hemoptysis, Orthopnea, Pleuritic Pain, Shortness of breath, SOB with excertion, Sputum Changes, Stridor, Tachypnea, Wheezing, Other Cardiovascular: No Chest Pain, No Palpitations, No Orthopnea, No Paroxysmal Noc. Dyspnea, No Edema, No Lt Headedness, No Other Gastrointestinal: No Nausea, No Vomiting, No Abdominal Pain, No Diarrhea, No Constipation, No Melena, No Hematochezia, No Other Genitourinary: No Dysuria, No Frequency, No Incontinence, No Hematuria, No Retention, No Discharge, No Urgency, No Pain, No Flank Pain, No Other, No , No , No , No , No , No , No Musculoskeletal: Yes Joint Pain; No Gait Disturbance, No Joint Stiffness, No Joint Swelling, No Muscle Pain, No Muscular Weakness, No Pain In:, No Swelling In:, No Other Neurological: No Behavorial Changes, No Bowel/Bladder ControlChng, No Confusion, No Dizziness, No Gait Disturbance, No Headaches, No Impaired Coord/balance, No Memory Loss, No Numbness/Tingling, No Seizures, No Speech Problems, No Tremors, No Visual Changes, No Weakness, No Other Skin: No Dry Skin, No Eczema, No Hair Changes, No Lumps, No Mole Changes, No Mottling, No Nail Changes, No Pruritus, No Rash, No Skin Lesion Changes, No Other, No Acne Physical Exam General: Alert, Oriented X3, Cooperative, No acute distress HEENT: Atraumatic, PERRLA, EOMI, Mucous membr. moist/pink Lungs: Clear to auscultation, Normal air movement Heart: S1S2, RRR, no thrills, no rubs, no gallops, no murmurs Abdomen: Normal bowel sounds, Soft, No tenderness, No hepatosplenomegaly, No masses Rectal Exam: not examined Extremities: No clubbing, No cyanosis, No edema, Normal pulses, No tenderness/swelling Skin: No rashes, No breakdown, No significant lesion Neuro: Normal gait, Normal speech, Strength at 5/5 X4 ext, Normal tone, Sens ation intact, Cranial nerves 3-12 NL, Reflexes 2+ Psych/Mental Status: Mental status NL, Mood NL Vitals Vitals Vital Signs Date Time Temp Pulse Resp B/P (MAP) Pulse Ox O2 Delivery O2 Flow Rate FiO2 09/24/21 03:35 98.8 91 95 98.8 09/24/21 03:10 17 09/24/21 02:31 Nasal Cannula 6.0 09/24/21 00:28 182/77 (112) Labs Labs Laboratory Tests Test 09/24/21 02:33 White Blood Count 14.9 x10^3/uL (4.0-11.0) Red Blood Count 4.69 x10^6/uL (4.30-5.70) Hemoglobin 14.0 g/dL (13.0-17.5) Hematocrit 42.3 % (39.0-53.0) Mean Corpuscular Volume 90 fL (79-100) Mean Corpuscular Hemoglobin 30 pg (25-35) Mean Corpuscular Hemoglobin Concent 33 g/dL (31-37) Red Cell Distribution Width 13.2 % (11.5-14.5) Platelet Count 196 x10^3/uL (140-400) Neutrophils (%) (Auto) 87 % (31-73) Lymphocytes (%) (Auto) 6 % (24-48) Monocytes (%) (Auto) 6 % (0-9) Eosinophils (%) (Auto) 0 % (0-3) Basophils (%) (Auto) 0 % (0-3) Neutrophils # (Auto) 12.9 x10^3/uL (1.8-7.7) Lymphocytes # (Auto) 0.9 x10^3/uL (1.0-4.8) Monocytes # (Auto) 1.0 x10^3/uL (0.0-1.1) Eosinophils # (Auto) 0.0 x10^3/uL (0.0-0.7) Basophils # (Auto) 0.1 x10^3/uL (0.0-0.2) Segmented Neutrophils % 89 % (35-66) Lymphocytes % 8 % (24-48) Monocytes % 3 % (0-10) Platelet Estimate Adequate (ADEQUATE) Sodium Level 136 mmol/L (136-145) Potassium Level 3.4 mmol/L (3.5-5.1) Chloride Level 108 mmol/L (98-107) Carbon Dioxide Level 21 mmol/L (21-32) Anion Gap 7 (6-14) Blood Urea Nitrogen 15 mg/dL (8-26) Creatinine 0.6 mg/dL (0.7-1.3) Estimated GFR (Cockcroft-Gault) 145.7 Glucose Level 76 mg/dL (70-99) Calcium Level 6.0 mg/dL (8.5-10.1) Laboratory Tests Test 09/24/21 02:33 White Blood Count 14.9 x10^3/uL (4.0-11.0) Red Blood Count 4.69 x10^6/uL (4.30-5.70) Hemoglobin 14.0 g/dL (13.0-17.5) Hematocrit 42.3 % (39.0-53.0) Mean Corpuscular Volume 90 fL (79-100) Mean Corpuscular Hemoglobin 30 pg (25-35) Mean Corpuscular Hemoglobin Concent 33 g/dL (31-37) Red Cell Distribution Width 13.2 % (11.5-14.5) Platelet Count 196 x10^3/uL (140-400) Neutrophils (%) (Auto) 87 % (31-73) Lymphocytes (%) (Auto) 6 % (24-48) Monocytes (%) (Auto) 6 % (0-9) Eosinophils (%) (Auto) 0 % (0-3) Basophils (%) (Auto) 0 % (0-3) Neutrophils # (Auto) 12.9 x10^3/uL (1.8-7.7) Lymphocytes # (Auto) 0.9 x10^3/uL (1.0-4.8) Monocytes # (Auto) 1.0 x10^3/uL (0.0-1.1) Eosinophils # (Auto) 0.0 x10^3/uL (0.0-0.7) Basophils # (Auto) 0.1 x10^3/uL (0.0-0.2) Segmented Neutrophils % 89 % (35-66) Lymphocytes % 8 % (24-48) Monocytes % 3 % (0-10) Platelet Estimate Adequate (ADEQUATE) Sodium Level 136 mmol/L (136-145) Potassium Level 3.4 mmol/L (3.5-5.1) Chloride Level 108 mmol/L (98-107) Carbon Dioxide Level 21 mmol/L (21-32) Anion Gap 7 (6-14) Blood Urea Nitrogen 15 mg/dL (8-26) Creatinine 0.6 mg/dL (0.7-1.3) Estimated GFR (Cockcroft-Gault) 145.7 Glucose Level 76 mg/dL (70-99) Calcium Level 6.0 mg/dL (8.5-10.1) Images Images Chest radiograph: Lines, Tubes, and Devices: None. Cardiomediastinal Silhouette: Within normal limits. Lungs and Pleura: Mild diffuse interstitial opacities, greatest in the lower lobes, and mild patchy opacities in the lower lung zones. No evidence of pleural effusion or pneumothorax. Bones and Soft Tissues: Degenerative changes in the thoracic spine. IMPRESSION: Findings suspicious for mild pulmonary edema. VTE Prophylaxis Ordered VTE Prophylaxis Devices: No VTE Pharmacological Prophylaxi: Yes Assessment/Plan Assessment/Plan Acute respiratory failure with hypoxia -due to likely opioid overdose. Will wean O2 as tolerated. Accidental overdose -patient thinks he took 20 mg of oxycodone however he snorted it. Given Narcan with improvement. Noncardiogenic pulmonary edema -will observe on oxygen unlikely to require diuretics. Hypokalemia -replaced by mouth Hypocalcemia -replaced Chronic back pain -counseled on opioid misuse. He takes gabapentin outpatient. Smoker -counseled for least 6 minutes on cessation particularly counseled against smoke around children in the home. Opioid misuse - counseled FEN - Regular diet PPX - scds FULL CODE Dispo - observation Justifications for Admission Other Justification CASEY GEIGER MD Sep 24, 2021 08:32
[2021-09-24 09:35] LABS: BARBITURATES NEG (NEG); BENZODIAZEPINES NEG (NEG); CANNABINOIDS POS (NEG); COCAINE NEG (NEG); METHADONE NEG (NEG); OPIATES NEG (NEG); PHENCYCLIDINE NEG (NEG)
[2021-09-24 09:36] LABS: AMPHETAMINE/METHAMPHETAMINE NEG (NEG)
[2021-09-24 09:45] LABS: DIRECT BILIRUBIN 0.2 mg/dL (0.0-0.2); TOTAL BILIRUBIN 0.8 mg/dL (0.2-1.0); TOTAL PROTEIN 7.1 g/dL (6.4-8.2)
[2021-09-24 10:00] VITALS: BP 149/62
[2021-09-24] MEDS ORDERED: POTASSIUM CHLORIDE 20 MEQ TABLET.ER. PO ONE (10:00)
--- NOTE | 2021-09-24 14:59 | PDOC3 ---
Discharge Summary Visit Information Date of Admission: Sep 24, 2021 Date of Discharge: Sep 24, 2021 Admitting Diagnosis: Acute hypoxia, overdose Final Diagnosis Problems Medical Problems: (1) Hypocalcemia Status: Acute (2) Hypokalemia Status: Acute (3) Non-cardiogenic pulmonary edema Status: Acute (4) Opiate overdose Status: Acute (5) Respiratory failure Status: Acute Brief Hospital Course Allergies Allergies Coded Allergies Type Severity Reaction Last Updated Verified No Known Drug Allergies 07/25/15 No Vital Signs Vital Signs Date Time Temp Pulse Resp B/P (MAP) Pulse Ox O2 Delivery O2 Flow Rate FiO2 09/24/21 10:00 80 16 96 09/24/21 03:35 98.8 98.8 09/24/21 02:31 Nasal Cannula 6.0 09/24/21 00:28 182/77 (112) Lab Results Laboratory Tests Test 09/24/21 02:33 09/24/21 09:14 White Blood Count 14.9 x10^3/uL (4.0-11.0) Red Blood Count 4.69 x10^6/uL (4.30-5.70) Hemoglobin 14.0 g/dL (13.0-17.5) Hematocrit 42.3 % (39.0-53.0) Mean Corpuscular Volume 90 fL (79-100) Mean Corpuscular Hemoglobin 30 pg (25-35) Mean Corpuscular Hemoglobin Concent 33 g/dL (31-37) Red Cell Distribution Width 13.2 % (11.5-14.5) Platelet Count 196 x10^3/uL (140-400) Neutrophils (%) (Auto) 87 % (31-73) Lymphocytes (%) (Auto) 6 % (24-48) Monocytes (%) (Auto) 6 % (0-9) Eosinophils (%) (Auto) 0 % (0-3) Basophils (%) (Auto) 0 % (0-3) Neutrophils # (Auto) 12.9 x10^3/uL (1.8-7.7) Lymphocytes # (Auto) 0.9 x10^3/uL (1.0-4.8) Monocytes # (Auto) 1.0 x10^3/uL (0.0-1.1) Eosinophils # (Auto) 0.0 x10^3/uL (0.0-0.7) Basophils # (Auto) 0.1 x10^3/uL (0.0-0.2) Segmented Neutrophils % 89 % (35-66) Lymphocytes % 8 % (24-48) Monocytes % 3 % (0-10) Platelet Estimate Adequate (ADEQUATE) Sodium Level 136 mmol/L (136-145) Potassium Level 3.4 mmol/L (3.5-5.1) Chloride Level 108 mmol/L (98-107) Carbon Dioxide Level 21 mmol/L (21-32) Anion Gap 7 (6-14) Blood Urea Nitrogen 15 mg/dL (8-26) Creatinine 0.6 mg/dL (0.7-1.3) Estimated GFR (Cockcroft-Gault) 145.7 Glucose Level 76 mg/dL (70-99) Calcium Level 6.0 mg/dL (8.5-10.1) Total Bilirubin 0.8 mg/dL (0.2-1.0) Direct Bilirubin 0.2 mg/dL (0.0-0.2) Aspartate Amino Transf (AST/SGOT) 35 U/L (15-37) Alanine Aminotransferase (ALT/SGPT) 36 U/L (16-63) Alkaline Phosphatase 34 U/L (46-116) Total Protein 7.1 g/dL (6.4-8.2) Albumin 4.0 g/dL (3.4-5.0) Urine Opiates Screen Neg (NEG) Urine Methadone Screen Neg (NEG) Urine Barbiturates Neg (NEG) Urine Phencyclidine Screen Neg (NEG) Urine Amphetamine/Methamphetamine Neg (NEG) Urine Benzodiazepines Screen Neg (NEG) Urine Cocaine Screen Neg (NEG) Urine Cannabinoids Screen Pos (NEG) Ethyl Alcohol Level < 10 mg/dL (0-10) Urine Ethyl Alcohol Neg (NEG) Laboratory Tests Test 09/24/21 02:33 09/24/21 09:14 White Blood Count 14.9 x10^3/uL (4.0-11.0) Red Blood Count 4.69 x10^6/uL (4.30-5.70) Hemoglobin 14.0 g/dL (13.0-17.5) Hematocrit 42.3 % (39.0-53.0) Mean Corpuscular Volume 90 fL (79-100) Mean Corpuscular Hemoglobin 30 pg (25-35) Mean Corpuscular Hemoglobin Concent 33 g/dL (31-37) Red Cell Distribution Width 13.2 % (11.5-14.5) Platelet Count 196 x10^3/uL (140-400) Neutrophils (%) (Auto) 87 % (31-73) Lymphocytes (%) (Auto) 6 % (24-48) Monocytes (%) (Auto) 6 % (0-9) Eosinophils (%) (Auto) 0 % (0-3) Basophils (%) (Auto) 0 % (0-3) Neutrophils # (Auto) 12.9 x10^3/uL (1.8-7.7) Lymphocytes # (Auto) 0.9 x10^3/uL (1.0-4.8) Monocytes # (Auto) 1.0 x10^3/uL (0.0-1.1) Eosinophils # (Auto) 0.0 x10^3/uL (0.0-0.7) Basophils # (Auto) 0.1 x10^3/uL (0.0-0.2) Segmented Neutrophils % 89 % (35-66) Lymphocytes % 8 % (24-48) Monocytes % 3 % (0-10) Platelet Estimate Adequate (ADEQUATE) Sodium Level 136 mmol/L (136-145) Potassium Level 3.4 mmol/L (3.5-5.1) Chloride Level 108 mmol/L (98-107) Carbon Dioxide Level 21 mmol/L (21-32) Anion Gap 7 (6-14) Blood Urea Nitrogen 15 mg/dL (8-26) Creatinine 0.6 mg/dL (0.7-1.3) Estimated GFR (Cockcroft-Gault) 145.7 Glucose Level 76 mg/dL (70-99) Calcium Level 6.0 mg/dL (8.5-10.1) Total Bilirubin 0.8 mg/dL (0.2-1.0) Direct Bilirubin 0.2 mg/dL (0.0-0.2) Aspartate Amino Transf (AST/SGOT) 35 U/L (15-37) Alanine Aminotransferase (ALT/SGPT) 36 U/L (16-63) Alkaline Phosphatase 34 U/L (46-116) Total Protein 7.1 g/dL (6.4-8.2) Albumin 4.0 g/dL (3.4-5.0) Urine Opiates Screen Neg (NEG) Urine Methadone Screen Neg (NEG) Urine Barbiturates Neg (NEG) Urine Phencyclidine Screen Neg (NEG) Urine Amphetamine/Methamphetamine Neg (NEG) Urine Benzodiazepines Screen Neg (NEG) Urine Cocaine Screen Neg (NEG) Urine Cannabinoids Screen Pos (NEG) Ethyl Alcohol Level < 10 mg/dL (0-10) Urine Ethyl Alcohol Neg (NEG) Brief Hospital Course Mr Hu is a 46 yo male w/PMHx past medical history significant for chronic back pain, obesity, smoker who presented to ED with concern for opiate overdose. EMS told ED they were called to the patient's house by his brother who was contacted by the patient's 17-year-old and 10-year-old children who found him down in the kitchen. Upon arrival EMS states the patient was prone in the kitchen and cyanotic and apneic, given 1 mg intramuscular Narcan with improvement. Placed on nonrebreather and brought him to the emergency department. He states that he snorted what he alleges was 20 mg of oxycodone j ust prior to EMS arrival. He notes he was doing yard work throughout the day and overdid it and was just trying to get some rest and pain relief. He he notes he is frequently taken doses as high did not intend to harm himself. Chest radiograph with some pulmonary edema and did require some oxygen 7 L/min to maintain O2 saturations 94%. Some mild leukocytosis noted WBC 14, K3, calcium 6 both replaced. Urine drug screen pending EKG sinus rhythm rate of 73 bpm normal axis and intervals, QTC [address] elevations or TWI Admitted for observation Observed for 10 hours after Narcan administration. No further respiratory distress completely off oxygen able to eat and answer questions appropriately. Counseled heavily on opioid misuse. His urine drug screen came back positive for cannabinoids. Also counseled on appropriate management of pain and cessation. Repeat physical examination HEENT: Head normocephalic, atraumatic. NECK: Supple LUNGS: Clear to auscultation. HEART: RRR, S1, S2 present, pulses intact ABDOMEN: Soft, positive bowel sounds. EXTREMITIES: No cyanosis or edema. NEUROLOGIC: Normal speech, normal tone PSYCHIATRIC: Normal affect, normal mood. SKIN: No ulceration. Problem list: Acute respiratory failure with hypoxia -due to likely opioid overdose. Resolved Accidental overdose -patient thinks he took 20 mg of oxycodone however he snorted it. Given Narcan with improvement. Noncardiogenic pulmonary edema - resolved Hypokalemia -replaced by mouth Hypocalcemia -replaced Chronic back pain -counseled on opioid misuse. He takes gabapentin outpatient. Smoker -counseled for least 6 minutes on cessation particularly counseled against smoke around children in the home. Opioid misuse - counseled Greater than 135 minutes spent on d/c home with self care Discharge Information Condition at Discharge: Improved Follow Up: Weeks Disposition/Orders: D/C to Home Scheduled Ascorbate Calcium (Vitamin C) 500 Mg Tablet, 500 MG PO DAILY, (Reported) Entered as Reported by: LISA DIAZ on 07/24/15 1031 Bupropion Hcl (Wellbutrin Xl) 300 Mg Tab.er.24h, 300 MG PO DAILY, (Reported) Entered as Reported by: LISA DIAZ on 07/24/15 1031 Multivitamin (Multi Vitamin Daily) 1 Each Tablet, 1 EACH PO DAILY, (Reported) Entered as Reported by: LISA DIAZ on 07/24/15 1031 Discontinued Medications Amoxicillin/Potassium Clav (Augmentin 875-125 Tablet) 1 Each Tablet, 1 TAB PO BID, #14 Prescribed by: BOUBACAR COY APRN on 11/02/18 2255 Cephalexin (Cephalexin) 500 Mg Tablet, 1 TAB PO QID, #40 Prescribed by: Vicki Mcdaniel APRN on 08/29/18 2355 Ciprofloxacin Hcl (Cipro) 500 Mg Tablet, 1 TAB PO BID for 7 Days, #14 Ref 0 Prescribed by: TRAVIS HUERTA APRN on 04/16/20 2029 Clindamycin Hcl (Clindamycin Hcl) 150 Mg Capsule, 450 MG PO TID for 7 Days, #63 Ref 0 Prescribed by: TRAVIS HUERTA APRN on 04/16/20 1439 Cyclobenzaprine Hcl (Cyclobenzaprine Hcl) 10 Mg Tablet, 10 MG PO TID PRN for PAIN, (Reported) Entered as Reported by: LISA DIAZ on 07/24/15 1031 Cyclobenzaprine Hcl (Cyclobenzaprine Hcl) 10 Mg Tablet, 1 TAB PO TID, #15 Prescribed by: PAKO TY on 07/01/16 1725 Hydrocodone Bit/Acetaminophen (Hydrocodone-Apap 5-325 ) 1 Tab Tablet, 0.5-1 TAB PO PRN Q6HRS PRN for SEVERE PAIN 7-10, #10 Ref 0 Prescribed by: TRAVIS HUERTA APRN on 04/16/20 1439 Hydrocodone Bit/Acetaminophen (Hydrocodone-Apap 5-325 ) 1 Tab Tablet, 1 TAB PO PRN Q6HRS PRN for PAIN, #20 Ref 0 Prescribed by: BOUBACAR MULLINS APRN on 07/12/20 2337 Hydrocodone/Apap 5-325 ([place] 5-325 Tablet) 1 Each Tablet, 2 TAB PO PRN Q6HRS PRN for PAIN, #14 Prescribed by: PAKO TY on 07/01/16 1725 Hydrocodone/Apap 5-325 ([place] 5-325 Tablet) 1 Each Tablet, 1 TAB PO PRN Q6HRS PRN for PAIN, #14 Ref 0 Prescribed by: BOUBACAR LAW D.O. on 11/28/18 05 Ibuprofen (Ibuprofen) 800 Mg Tablet, 800 MG PO Q6H PRN for PAIN, (Reported) Entered as Reported by: LISA DIAZ on 07/24/15 1031 Ibuprofen (Ibuprofen) 600 Mg Tablet, 600 MG PO PRN Q6HRS PRN for INFLAMMATION, #30 Ref 0 Prescribed by: BOUBACAR MULLINS APRN on 07/12/20 2337 Lidocaine (Lidocaine PATCH ) 1 Each Adh..patch, 1 EACH TP Q12HR PRN for PAIN, #10 Apply new patch to affected area and leave on for first 12 hours. Remove for next 12 hours before applying new patch. Repeat. Prescribed by: BOUBACAR LAW D.O. on 11/28/18 05 Methylprednisolone (Medrol) 4 Mg Tab.ds.pk, 1 PKG PO UD for sciatica, #1 Prescribed by: CM FAGAN APRN on 10/26/18 1404 Orphenadrine Citrate (Orphenadrine Citrate) 100 Mg Tablet.er, 100 MG PO BID PRN for MUSCLE SPASMS, #14 Prescribed by: BOUBACAR LAW D.O. on 11/28/18 05 Oxycodone/Apap 7.5-325 (Percocet 7.5-325 Mg Tablet ) 1 Each Tablet, 1 TAB PO PRN Q6HRS PRN for PAIN, Ref 0 (Reported) Entered as Reported by: LISA DIAZ on 07/24/15 1031 Oxycodone/Apap 7.5-325 (Percocet 7.5-325 Mg Tablet ) 1 Each Tablet, 1-2 TAB PO PRN Q6HRS PRN for PAIN, #80 Ref 0 Prescribed by: ABDIRAHMAN EDMONDSON on 07/25/15 0937 Prednisone (Prednisone) 20 Mg Tablet, 2 TAB PO DAILY, #8 Start this medication tomorrow, Friday11/29/18 Prescribed by: BOUBACAR LAW D.O. on 11/28/18 0513 Zolpidem Tartrate (Ambien) 10 Mg Tablet, 10 MG PO HS PRN for INSOMNIA, Ref 0 (Reported) Entered as Reported by: LISA DIAZ on 07/24/15 1031 Justicifation of Admission Dx: Justifications for Admission: Justification of Admission Dx: Yes CASEY GEIGER MD Sep 24, 2021 14:59
== END 2021-09-24 11:01 | disposition home or self-care (01) ==
LOC: ER 00:22 → ED HOLD 02:25 → UNDOADMIN 02:25 → ED HOLD 09:03 → UNDODISIN 11:01
DX: T40.2X1A Poisoning by other opioids, accidental (unintentional), initial encounter (principal); J96.01 Acute respiratory failure with hypoxia; J81.1 Chronic pulmonary edema; D72.829 Elevated white blood cell count, unspecified; E83.51 Hypocalcemia; E87.6 Hypokalemia; F17.210 Nicotine dependence, cigarettes, uncomplicated; G89.29 Other chronic pain; Z82.49 Family history of ischemic heart disease and other diseases of the circulatory system; E66.9 Obesity, unspecified; Y92.89 Other specified places as the place of occurrence of the external cause
CPT/HCPCS: 36415; 71045; 80048; 80076; 80307; 85007; 85025; 93005; 94640; 96374; 96375; G0480; J0610; J1940; J2310; J2405; 99285-25; J7613

== ENCOUNTER 2021-11-02 00:52 | Observation (INO) | payer OTHER ==
[~2021-11-02] VITALS: Ht 188 cm; Wt 160.8 kg
--- NOTE | 2021-11-02 01:07 | PHYS DOC ---
Past Medical History Past Medical History: No Pertinent History Additional Past Medical Histor: CHRONIC BACK PAIN Past Surgical History: No Surgical History Additional Past Surgical Histo: back sx, shoulder sx. Smoking Status: Never Smoker Alcohol Use: None Drug Use: Marijuana General Adult EDM: Chief Complaint: OVERDOSE HPI: HPI: History obtained from patient and EMS. Patient is a 46-year-old male with past medical history significant for chronic back pain who presents with concern for opiate overdose. EMS states they were called to the patient's house by DAUGHTER because patient was found unresponsive in his bed. Upon arrival EMS states the patient was unresponsive and cyanotic, APNIC.They did administer 1 mg intramuscular Narcan. Patient woke up and started breathing on his own but required oxygen due to low oxygen saturation. They placed him on nonrebreather and brought him to the emergency department. UPon arrival to room, patient was awake,alert and oriented. He said about 2 hours ago, he took 1 tablet of norco 10 that left over for back pain. He states he was taking this in an attempt to self treat chronic back pain. 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 He said he was not doing this in an attempt to get high or harm himself. Denies any suicidal homicidal ideations. Denies any other recreational drugs today. Patient was overdosed 1 time in the past with the s jono story. Patient also said he took neurontin, clonidine tonight as well. Review of Systems: Review of Systems: Constitutional: Denies fever or chills. [] Eyes: Denies change in visual acuity. [] HENT: Denies nasal congestion or sore throat. [] Respiratory: Denies cough or shortness of breath. [] Cardiovascular: Denies chest pain or edema. [] GI: Denies abdominal pain, nausea, vomiting, bloody stools or diarrhea. [] : Denies dysuria. [] Musculoskeletal: Denies back pain or joint pain. [] Integument: Denies rash. [] Neurologic: Denies headache, focal weakness or sensory changes. [] Endocrine: Denies polyuria or polydipsia. [] Lymphatic: Denies swollen glands. [] Psychiatric: Denies depression or anxiety. [] Heart Score: C/O Chest Pain: N/A Risk Factors: Risk Factors: DM, Current or recent (<one month) smoker, HTN, HLP, family history of CAD, obesity. Risk Scores: Score 0 - 3: 2.5% MACE over next 6 weeks - Discharge Home Score 4 - 6: 20.3% MACE over next 6 weeks - Admit for Clinical Observation Score 7 - 10: 72.7% MACE over next 6 weeks - Early Invasive Strategies Current Medications: Current Medications Medications (Trade) Dose Ordered Sig/Rebeca Start Time Stop Time Status Last Admin Dose Admin Sodium Chloride 1,000 ml @ 1,000 mls/hr 1X ONCE 11/02/21 01:00 11/02/21 01:59 UNV Allergies: Allergies: Allergies Coded Allergies Type Severity Reaction Last Updated Verified No Known Drug Allergies 07/25/15 No Physical Exam: PE: Constitutional: Well developed, well nourished, no acute distress, non-toxic appearance. [] HENT: Normocephalic, atraumatic, bilateral external ears normal, oropharynx moist, no oral exudates, nose normal. [] Eyes: PERRLA, EOMI, conjunctiva normal, no discharge. [] Neck: Normal range of motion, no tenderness, supple, no stridor. [] Cardiovascular:Heart rate regular rhythm, no murmur [] Lungs & Thorax: Bilateral breath sounds clear to auscultation [] Abdomen: Bowel sounds normal, soft, no tenderness, no masses, no pulsatile masses. [] Skin: Warm, dry, no erythema, no rash. [] Back: No tenderness, no CVA tenderness. [] Extremities: No tenderness, no cyanosis, no clubbing, ROM intact, no edema. [] Neurologic: Alert and oriented X 3, normal motor function, normal sensory function, no focal deficits noted. [] Psychologic: Affect normal, judgement normal, mood normal. [] Current Patient Data: Labs: Laboratory Tests Test 11/02/21 00:58 11/02/21 01:42 11/02/21 03:09 White Blood Count 11.3 x10^3/uL Red Blood Count 4.90 x10^6/uL Hemoglobin 15.0 g/dL Hematocrit 44.3 % Mean Corpuscular Volume 91 fL Mean Corpuscular Hemoglobin 31 pg Mean Corpuscular Hemoglobin Concent 34 g/dL Red Cell Distribution Width 13.3 % Platelet Count 201 x10^3/uL Neutrophils (%) (Auto) 62 % Lymphocytes (%) (Auto) 28 % Monocytes (%) (Auto) 7 % Eosinophils (%) (Auto) 2 % Basophils (%) (Auto) 1 % Neutrophils # (Auto) 7.1 x10^3/uL Lymphocytes # (Auto) 3.2 x10^3/uL Monocytes # (Auto) 0.8 x10^3/uL Eosinophils # (Auto) 0.2 x10^3/uL Basophils # (Auto) 0.1 x10^3/uL Sodium Level 139 mmol/L Potassium Level 3.5 mmol/L Chloride Level 102 mmol/L Carbon Dioxide Level 28 mmol/L Anion Gap 9 Blood Urea Nitrogen 18 mg/dL Creatinine 1.0 mg/dL Estimated GFR (Cockcroft-Gault) 80.8 BUN/Creatinine Ratio 18 Glucose Level 148 mg/dL Calcium Level 8.2 mg/dL Magnesium Level 2.0 mg/dL Total Bilirubin 0.3 mg/dL Aspartate Amino Transf (AST/SGOT) 25 U/L Alanine Aminotransferase (ALT/SGPT) 34 U/L Alkaline Phosphatase 39 U/L Troponin I High Sensitivity 7 ng/L Total Protein 7.0 g/dL Albumin 3.7 g/dL Albumin/Globulin Ratio 1.1 Salicylates Level 4.7 mg/dL Salicylate Last Dose Date Salicylate Last Dose Time Acetaminophen Level < 2 mcg/ml Acetaminophen Last Dose Date Acetaminophen Last Dose Time Ethyl Alcohol Level < 10 mg/dL Urine Opiates Screen Neg Urine Methadone Screen Neg Urine Barbiturates Neg Urine Phencyclidine Screen Neg Urine Amphetamine/Methamphetamine Neg Urine Benzodiazepines Screen Neg Urine Cocaine Screen Neg Urine Cannabinoids Screen Pos Urine Ethyl Alcohol Neg Current Medications Medications (Trade) Dose Ordered Sig/Rebeca Route PRN Reason Start Time Stop Time Status Last Admin Dose Admin Sodium Chloride 1,000 ml @ 1,000 mls/hr 1X ONCE IV 11/02/21 01:30 11/02/21 02:29 DC 11/02/21 01:05 Vital Signs: Vital Signs Date Time Temp Pulse Resp B/P (MAP) Pulse Ox O2 Delivery O2 Flow Rate FiO2 11/02/21 00:56 98.1 98 20 92/64 (73) 90 Room Air 98.1 EKG: EKG: [] Radiology/Procedures: Radiology/Procedures: [][facility] [address] [place] [address] IMAGING REPORT Signed PATIENT: EVELYN PERALES V ACCOUNT: [id number] : 1975 LOCATION: ER AGE: 46 SEX: M EXAM STATUS: PRE ER ORD. PHYSICIAN: REJI DOBBINS DO REASON: SOA PROCEDURE: PORTABLE CHEST 1V INDICATION: Reason: SOA / Spl. Instructions: / History: COMPARISON: August 2021 FINDINGS: Frontal view of chest obtained. Mild interstitial and groundglass opacities. Linear opacity right lung again seen. Enlarged cardiac silhouette. IMPRESSION: * Mild interstitial and alveolar opacities bilaterally which could be from mild edema or infiltrate. Comparable to prior. Electronically signed by: Cari Cruz MD (11/02/2021 3:11 AM) [id number] DICTATED and SIGNED BY: CARI CRUZ MD DATE: 11/02/21309 Course & Med Decision Making: Course & Med Decision Making Pertinent Labs and Imaging studies reviewed. (See chart for details) Patient is a 46-year-old male who was brought here by EMS from home due to drug overdose. Patient accidentally overdosed on his medication tonight. Patient admitted not taking [place] and Neurontin together. Patient was given Narcan by EMS, patient still requires oxygen. His oxygen saturation dropped Below 90% on room air. Patient will be admitted for observation. Dragon Disclaimer: Dragon Disclaimer: This electronic medical record was generated, in whole or in part, using a voice recognition dictation system. Departure Departure Impression: Primary Impression: Accidental drug overdose Disposition: ADMITTED INPATIENT Admitting Physician: PENELOPE (Dr. Merida) Condition: STABLE Referrals: DEMETRA WHIPPLE MD (PCP) REJI DOBBINS DO November 02, 2021 01:07
[2021-11-02 01:08] LABS: BASO # 0.1 x10^3/uL (0.0-0.2); BASO % 1 % (0-3); EOS # 0.2 x10^3/uL (0.0-0.7); EOS % 2 % (0-3); HEMATOCRIT 44.3 % (39.0-53.0); LYMPH # 3.2 x10^3/uL (1.0-4.8); LYMPH % 28 % (24-48); MEAN CORPUSCULAR HEMOGLOBIN 31 pg (25-35); MEAN CORPUSCULAR HGB CONC 34 g/dL (31-37); MEAN CORPUSCULAR VOLUME 91 fL (79-100); MONO # 0.8 x10^3/uL (0.0-1.1); MONO % 7 % (0-9); NEUT # 7.1 x10^3/uL (1.8-7.7); NEUT % 62 % (31-73); PLATELET COUNT 201 x10^3/uL (140-400); RED CELL DISTRIBUTION WIDTH 13.3 % (11.5-14.5); WHITE BLOOD COUNT 11.3 x10^3/uL (4.0-11.0)
[2021-11-02] MEDS ORDERED: IV NORMAL SALINE 1000ML BAG 1,000 ML IV ONE (01:30)
[2021-11-02 02:10] LABS: CALCIUM 8.2 mg/dL (8.5-10.1); GFR 80.8; POTASSIUM 3.5 mmol/L (3.5-5.1)
[2021-11-02 02:15] LABS: ALBUMIN 3.7 g/dL (3.4-5.0); ALBUMIN/GLOBULIN RATIO 1.1 (1.0-1.7); TOTAL BILIRUBIN 0.3 mg/dL (0.2-1.0)
[2021-11-02 02:23] LABS: ACETAMIN < 2 mcg/ml (10-30); ETHANOL < 10 mg/dL (0-10); SALIC 4.7 mg/dL (2.8-20.0)
--- NOTE | 2021-11-02 03:13 | RAD ---
INDICATION: Reason: SOA / Spl. Instructions: / History: COMPARISON: August 2021 FINDINGS: Frontal view of chest obtained. Mild interstitial and groundglass opacities. Linear opacity right lung again seen. Enlarged cardiac s ilhouette. IMPRESSION: * Mild interstitial and alveolar opacities bilaterally which could be from mild edema or infiltrate. Comparable to prior. Electronically signed by: Harshad Salians MD (11/02/2021 3:11 AM) [id number]
[2021-11-02 03:31] LABS: BARBITURATES NEG (NEG); BENZODIAZEPINES NEG (NEG); CANNABINOIDS POS (NEG); COCAINE NEG (NEG); METHADONE NEG (NEG); OPIATES NEG (NEG); PHENCYCLIDINE NEG (NEG)
[2021-11-02 03:33] LABS: AMPHETAMINE/METHAMPHETAMINE NEG (NEG)
[2021-11-02] MEDS ORDERED: ONDANSETRON PF 4 MG/2 ML VIAL. IVP PRN (03:45)
[2021-11-02] MEDS ORDERED: IV NORMAL SALINE 1000ML BAG 1,000 ML IV SCH (04:00)
[2021-11-02 04:48] VITALS: BP 144/79
[2021-11-02] MEDS ORDERED: AMLO10TA4 PO (06:33)
[2021-11-02] MEDS ORDERED: AMIT25TA PO (06:33)
[2021-11-02] MEDS ORDERED: LISI10TA16 PO (06:34)
[2021-11-02] MEDS ORDERED: GABA-689 PO (06:35)
[2021-11-02] MEDS ORDERED: ACET325T9 PO (06:37)
[2021-11-02] MEDS ORDERED: IBUP-1060 PO (06:37)
[2021-11-02] MEDS ORDERED: VENTOLIN HFA18 GM INH (06:38)
[2021-11-02 07:00] VITALS: BP 119/70
--- NOTE | 2021-11-02 07:55 | NUR ---
The patient, EVELYN PERALES V, 46 y/o, M admitted by SCOT NORRIS III, DO, was given written information regarding hospital policies, unit procedures and contact persons. Valuables were checked and document. assessment completed and documented. call light in reach will cont to monitor pt status and safety. pmrn
--- NOTE | 2021-11-02 08:05 | EKG ---
[facility] [address] [place] [address] Test Date: 2021-11-02 Test Time: 01:09:03 Pat Name: EVELYN PERALES Department: Room: [facility] Gender: M Inpatient Pharmacist: : 1975 Requested By: REJI DOBBINS Order Number: [id number] Reading MD: Matt Shaw MD Measurements Intervals [place] Rate: 90 P: 41 TN: 150 QRS: 26 QRSD: 120 T: -1 QT: 378 QTc: 467 Interpretive Statements SINUS RHYTHM Electronically Signed On 11-05-2021 9:02:34 CDT by Matt Shaw MD
--- NOTE | 2021-11-02 10:26 | PDOC1 ---
History and Physical Date of Admission Date of Admission DATE: 11/02/21 TIME: 10:14 Identification/Chief Complaint Chief Complaint Unintentional overdose Source Source: Patient History of Present Illness History of Present Illness Patient is a 46-year-old male with past medical history of chronic back pain, who presents to the ED as a unintentional [place] overdose. States he missed a lot of his chronic medications yesterday and decided to take them all at once, including amitriptyline, gabapentin, amlodipine, ibuprofen, and an old [place]. At home he became unresponsive, cyanotic, and apneic, so his daughter contacted EMS. He was administered 1 g intramuscularly of Narcan with some improvement. He denies any attempt to harm himself. He was admitted here for similar episode in 09/24/2021. He has been admitted for further medical management. Past Medical History Past Medical History Chronic back pain, HTN Past Surgical History Past Surgical History Back surgery, shoulder surgery Past Surgical History: Other Family History Family History: Hypertension Social History Smoke: 1 pack per day ALCOHOL: social Drugs: Marijuana Current Problem List Problem List Problems Medical Problems: (1) Accidental drug overdose Status: Acute Current Medications Current Medications Current Medications Sodium Chloride 1,000 ml @ 1,000 mls/hr 1X ONCE IV Last administered on 11/02/21at 01:05; Start 11/02/21 at 01:30; Stop 11/02/21 at 02:29; Status DC Ondansetron HCl (Zofran) 4 mg PRN Q8HRS PRN IVP NAUSEA/VOMITING 1ST CHOICE; Start 11/02/21 at 03:45; Stop 11/03/21 at 03:44 Sodium Chloride 1,000 ml @ 100 mls/hr Q10H IV ; Start 11/02/21 at 04:00; Stop 11/03/21 at 03:59 Active Scripts Active Reported Ventolin Hfa Inhaler (Albuterol Sulfate) 18 Gm Hfa.aer.ad 2 Puff INH QID Tylenol (Acetaminophen) 325 Mg Tablet 650 Mg PO Q6HRS PRN Ibuprofen 800 Mg Tablet 800 Mg PO PRN Q6HRS PRN Gabapentin (Gabapentin) 400 Mg Capsule 400 Mg PO TID Lisinopril 10 Mg Tablet 10 Mg PO DAILY Norvasc (Amlodipine Besylate) 10 Mg Tablet 10 Mg PO DAILY Amitriptyline Hcl 25 Mg Tablet 25 Mg PO DAILY Allergies Allergies: Coded Allergies: No Known Drug Allergies (Unverified , 07/25/15) ROS Review of System GENERAL: No history of weight change, weakness or fevers. SKIN: No bruising, hair changes or rashes. EYES: No blurred, double or loss of vision. NOSE AND THROAT: No history of nosebleeds, hoarseness or sore throat. HEART: Denies chest pain, denies palpitations. LUNGS: Denies cough, hemoptysis, wheezing or shortness of breath. GASTROINTESTINAL: Denies nausea, vomiting, abdominal pain. GENITOURINARY: Denies dysuria, frequency, urgency, hematuria. NEUROLOGIC: Denies history of numbness, tingling, tremor or weakness. PSYCHIATRIC: Denies anxiety, denies depression. ENDOCRINE: No history of heat or cold intolerance, polyuria or polydipsia. EXTREMITIES: Denies muscle weakness, joint pain, pain on walking or stiffness. Physical Exam Physical Exam General: Alert, Oriented X3, Cooperative, No acute distress. Morbidly obese. HEENT: PERRLA, EOMI Lungs: Clear to auscultation, Normal air movement Heart: RRR, no murmurs Cardiovascular: S1, S2 Abdomen: Normal bowel sounds, Soft, No tenderness Extremities: No clubbing, No cyanosis Skin: No rashes, No significant lesion Neuro: Normal speech, Normal tone, Sensation intact Psych/Mental Status: Mental status NL, Mood NL Vitals Vitals Vital Signs Date Time Temp Pulse Resp B/P (MAP) Pulse Ox O2 Delivery O2 Flow Rate FiO2 11/02/21 08:00 Room Air 11/02/21 07:00 98.7 72 17 119/70 (86) 94 2.0 98.7 Labs Labs Laboratory Tests Test 11/02/21 00:58 11/02/21 01:42 11/02/21 03:09 White Blood Count 11.3 x10^3/uL (4.0-11.0) Red Blood Count 4.90 x10^6/uL (4.30-5.70) Hemoglobin 15.0 g/dL (13.0-17.5) Hematocrit 44.3 % (39.0-53.0) Mean Corpuscular Volume 91 fL (79-100) Mean Corpuscular Hemoglobin 31 pg (25-35) Mean Corpuscular Hemoglobin Concent 34 g/dL (31-37) Red Cell Distribution Width 13.3 % (11.5-14.5) Platelet Count 201 x10^3/uL (140-400) Neutrophils (%) (Auto) 62 % (31-73) Lymphocytes (%) (Auto) 28 % (24-48) Monocytes (%) (Auto) 7 % (0-9) Eosinophils (%) (Auto) 2 % (0-3) Basophils (%) (Auto) 1 % (0-3) Neutrophils # (Auto) 7.1 x10^3/uL (1.8-7.7) Lymphocytes # (Auto) 3.2 x10^3/uL (1.0-4.8) Monocytes # (Auto) 0.8 x10^3/uL (0.0-1.1) Eosinophils # (Auto) 0.2 x10^3/uL (0.0-0.7) Basophils # (Auto) 0.1 x10^3/uL (0.0-0.2) Sodium Level 139 mmol/L (136-145) Potassium Level 3.5 mmol/L (3.5-5.1) Chloride Level 102 mmol/L (98-107) Carbon Dioxide Level 28 mmol/L (21-32) Anion Gap 9 (6-14) Blood Urea Nitrogen 18 mg/dL (8-26) Creatinine 1.0 mg/dL (0.7-1.3) Estimated GFR (Cockcroft-Gault) 80.8 BUN/Creatinine Ratio 18 (6-20) Glucose Level 148 mg/dL (70-99) Calcium Level 8.2 mg/dL (8.5-10.1) Magnesium Level 2.0 mg/dL (1.8-2.4) Total Bilirubin 0.3 mg/dL (0.2-1.0) Aspartate Amino Transf (AST/SGOT) 25 U/L (15-37) Alanine Aminotransferase (ALT/SGPT) 34 U/L (16-63) Alkaline Phosphatase 39 U/L (46-116) Troponin I High Sensitivity 7 ng/L (4-75) Total Protein 7.0 g/dL (6.4-8.2) Albumin 3.7 g/dL (3.4-5.0) Albumin/Globulin Ratio 1.1 (1.0-1.7) Salicylates Level 4.7 mg/dL (2.8-20.0) Salicylate Last Dose Date Salicylate Last Dose Time Acetaminophen Level < 2 mcg/ml (10-30) Acetaminophen Last Dose Date Acetaminophen Last Dose Time Ethyl Alcohol Level < 10 mg/dL (0-10) Urine Opiates Screen Neg (NEG) Urine Methadone Screen Neg (NEG) Urine Barbiturates Neg (NEG) Urine Phencyclidine Screen Neg (NEG) Urine Amphetamine/Methamphetamine Neg (NEG) Urine Benzodiazepines Screen Neg (NEG) Urine Cocaine Screen Neg (NEG) Urine Cannabinoids Screen Pos (NEG) Urine Ethyl Alcohol Neg (NEG) Laboratory Tests Test 11/02/21 00:58 11/02/21 01:42 11/02/21 03:09 White Blood Count 11.3 x10^3/uL (4.0-11.0) Red Blood Count 4.90 x10^6/uL (4.30-5.70) Hemoglobin 15.0 g/dL (13.0-17.5) Hematocrit 44.3 % (39.0-53.0) Mean Corpuscular Volume 91 fL (79-100) Mean Corpuscular Hemoglobin 31 pg (25-35) Mean Corpuscular Hemoglobin Concent 34 g/dL (31-37) Red Cell Distribution Width 13.3 % (11.5-14.5) Platelet Count 201 x10^3/uL (140-400) Neutrophils (%) (Auto) 62 % (31-73) Lymphocytes (%) (Auto) 28 % (24-48) Monocytes (%) (Auto) 7 % (0-9) Eosinophils (%) (Auto) 2 % (0-3) Basophils (%) (Auto) 1 % (0-3) Neutrophils # (Auto) 7.1 x10^3/uL (1.8-7.7) Lymphocytes # (Auto) 3.2 x10^3/uL (1.0-4.8) Monocytes # (Auto) 0.8 x10^3/uL (0.0-1.1) Eosinophils # (Auto) 0.2 x10^3/uL (0.0-0.7) Basophils # (Auto) 0.1 x10^3/uL (0.0-0.2) Sodium Level 139 mmol/L (136-145) Potassium Level 3.5 mmol/L (3.5-5.1) Chloride Level 102 mmol/L (98-107) Carbon Dioxide Level 28 mmol/L (21-32) Anion Gap 9 (6-14) Blood Urea Nitrogen 18 mg/dL (8-26) Creatinine 1.0 mg/dL (0.7-1.3) Estimated GFR (Cockcroft-Gault) 80.8 BUN/Creatinine Ratio 18 (6-20) Glucose Level 148 mg/dL (70-99) Calcium Level 8.2 mg/dL (8.5-10.1) Magnesium Level 2.0 mg/dL (1.8-2.4) Total Bilirubin 0.3 mg/dL (0.2-1.0) Aspartate Amino Transf (AST/SGOT) 25 U/L (15-37) Alanine Aminotransferase (ALT/SGPT) 34 U/L (16-63) Alkaline Phosphatase 39 U/L (46-116) Troponin I High Sensitivity 7 ng/L (4-75) Total Protein 7.0 g/dL (6.4-8.2) Albumin 3.7 g/dL (3.4-5.0) Albumin/Globulin Ratio 1.1 (1.0-1.7) Salicylates Level 4.7 mg/dL (2.8-20.0) Salicylate Last Dose Date Salicylate Last Dose Time Acetaminophen Level < 2 mcg/ml (10-30) Acetaminophen Last Dose Date Acetaminophen Last Dose Time Ethyl Alcohol Level < 10 mg/dL (0-10) Urine Opiates Screen Neg (NEG) Urine Methadone Screen Neg (NEG) Urine Barbiturates Neg (NEG) Urine Phencyclidine Screen Neg (NEG) Urine Amphetamine/Methamphetamine Neg (NEG) Urine Benzodiazepines Screen Neg (NEG) Urine Cocaine Screen Neg (NEG) Urine Cannabinoids Screen Pos (NEG) Urine Ethyl Alcohol Neg (NEG) Images Images PATIENT: EVELYN PERALES V ACCOUNT: [id number] : 1975 LOCATION: ER AGE: 46 SEX: M EXAM STATUS: PRE ER ORD. PHYSICIAN: REJI DOBBINS DO REASON: SOA PROCEDURE: PORTABLE CHEST 1V INDICATION: Reason: SOA / Spl. Instructions: / History: COMPARISON: August 2021 FINDINGS: Frontal view of chest obtained. Mild interstitial and groundglass opacities. Linear opacity right lung again seen. Enlarged cardiac silhouette. IMPRESSION: * Mild interstitial and alveolar opacities bilaterally which could be from mild edema or infiltrate. Comparable to prior. VTE Prophylaxis Ordered VTE Prophylaxis Devices: No VTE Pharmacological Prophylaxi: Yes Assessment/Plan Assessment/Plan Acute respiratory failure with hypoxia Accidental overdose Chronic back pain Smoker Opioid misuse Plan: Patient is alert and oriented today. We discussed deprescribing his medications, and he will follow-up with his PCP to do just that. He is a sole provider for his 2 daughters at home, and he states recently his brother did pass away, but states this has no bearing on why he was admitted. I will discontinue any further narcotics his home medication list upon discharge. He was discharged home with family care. FEN - Cardiac diet PPX - ambulatory FULL CODE Dispo - Home with self-care Justifications for Admission Other Justification PATTI DAMON MD November 02, 2021 10:26
--- NOTE | 2021-11-02 10:32 | PDOC3 ---
Discharge Summary Visit Information Date of Admission: November 02, 2021 Date of Discharge: November 02, 2021 Final Diagnosis Problems Medical Problems: (1) Accidental drug overdose Status: Acute Brief Hospital Course Allergies Allergies Coded Allergies Type Severity Reaction Last Updated Verified No Known Drug Allergies 07/25/15 No Vital Signs Vital Signs Date Time Temp Pulse Resp B/P (MAP) Pulse Ox O2 Delivery O2 Flow Rate FiO2 11/02/21 08:00 Room Air 11/02/21 07:00 98.7 72 17 119/70 (86) 94 2.0 98.7 Lab Results Laboratory Tests Test 11/02/21 00:58 11/02/21 01:42 11/02/21 03:09 White Blood Count 11.3 x10^3/uL (4.0-11.0) Red Blood Count 4.90 x10^6/uL (4.30-5.70) Hemoglobin 15.0 g/dL (13.0-17.5) Hematocrit 44.3 % (39.0-53.0) Mean Corpuscular Volume 91 fL (79-100) Mean Corpuscular Hemoglobin 31 pg (25-35) Mean Corpuscular Hemoglobin Concent 34 g/dL (31-37) Red Cell Distribution Width 13.3 % (11.5-14.5) Platelet Count 201 x10^3/uL (140-400) Neutrophils (%) (Auto) 62 % (31-73) Lymphocytes (%) (Auto) 28 % (24-48) Monocytes (%) (Auto) 7 % (0-9) Eosinophils (%) (Auto) 2 % (0-3) Basophils (%) (Auto) 1 % (0-3) Neutrophils # (Auto) 7.1 x10^3/uL (1.8-7.7) Lymphocytes # (Auto) 3.2 x10^3/uL (1.0-4.8) Monocytes # (Auto) 0.8 x10^3/uL (0.0-1.1) Eosinophils # (Auto) 0.2 x10^3/uL (0.0-0.7) Basophils # (Auto) 0.1 x10^3/uL (0.0-0.2) Sodium Level 139 mmol/L (136-145) Potassium Level 3.5 mmol/L (3.5-5.1) Chloride Level 102 mmol/L (98-107) Carbon Dioxide Level 28 mmol/L (21-32) Anion Gap 9 (6-14) Blood Urea Nitrogen 18 mg/dL (8-26) Creatinine 1.0 mg/dL (0.7-1.3) Estimated GFR (Cockcroft-Gault) 80.8 BUN/Creatinine Ratio 18 (6-20) Glucose Level 148 mg/dL (70-99) Calcium Level 8.2 mg/dL (8.5-10.1) Magnesium Level 2.0 mg/dL (1.8-2.4) Total Bilirubin 0.3 mg/dL (0.2-1.0) Aspartate Amino Transf (AST/SGOT) 25 U/L (15-37) Alanine Aminotransferase (ALT/SGPT) 34 U/L (16-63) Alkaline Phosphatase 39 U/L (46-116) Troponin I High Sensitivity 7 ng/L (4-75) Total Protein 7.0 g/dL (6.4-8.2) Albumin 3.7 g/dL (3.4-5.0) Albumin/Globulin Ratio 1.1 (1.0-1.7) Salicylates Level 4.7 mg/dL (2.8-20.0) Salicylate Last Dose Date Salicylate Last Dose Time Acetaminophen Level < 2 mcg/ml (10-30) Acetaminophen Last Dose Date Acetaminophen Last Dose Time Ethyl Alcohol Level < 10 mg/dL (0-10) Urine Opiates Screen Neg (NEG) Urine Methadone Screen Neg (NEG) Urine Barbiturates Neg (NEG) Urine Phencyclidine Screen Neg (NEG) Urine Amphetamine/Methamphetamine Neg (NEG) Urine Benzodiazepines Screen Neg (NEG) Urine Cocaine Screen Neg (NEG) Urine Cannabinoids Screen Pos (NEG) Urine Ethyl Alcohol Neg (NEG) Laboratory Tests Test 11/02/21 00:58 11/02/21 01:42 11/02/21 03:09 White Blood Count 11.3 x10^3/uL (4.0-11.0) Red Blood Count 4.90 x10^6/uL (4.30-5.70) Hemoglobin 15.0 g/dL (13.0-17.5) Hematocrit 44.3 % (39.0-53.0) Mean Corpuscular Volume 91 fL (79-100) Mean Corpuscular Hemoglobin 31 pg (25-35) Mean Corpuscular Hemoglobin Concent 34 g/dL (31-37) Red Cell Distribution Width 13.3 % (11.5-14.5) Platelet Count 201 x10^3/uL (140-400) Neutrophils (%) (Auto) 62 % (31-73) Lymphocytes (%) (Auto) 28 % (24-48) Monocytes (%) (Auto) 7 % (0-9) Eosinophils (%) (Auto) 2 % (0-3) Basophils (%) (Auto) 1 % (0-3) Neutrophils # (Auto) 7.1 x10^3/uL (1.8-7.7) Lymphocytes # (Auto) 3.2 x10^3/uL (1.0-4.8) Monocytes # (Auto) 0.8 x10^3/uL (0.0-1.1) Eosinophils # (Auto) 0.2 x10^3/uL (0.0-0.7) Basophils # (Auto) 0.1 x10^3/uL (0.0-0.2) Sodium Level 139 mmol/L (136-145) Potassium Level 3.5 mmol/L (3.5-5.1) Chloride Level 102 mmol/L (98-107) Carbon Dioxide Level 28 mmol/L (21-32) Anion Gap 9 (6-14) Blood Urea Nitrogen 18 mg/dL (8-26) Creatinine 1.0 mg/dL (0.7-1.3) Estimated GFR (Cockcroft-Gault) 80.8 BUN/Creatinine Ratio 18 (6-20) Glucose Level 148 mg/dL (70-99) Calcium Level 8.2 mg/dL (8.5-10.1) Magnesium Level 2.0 mg/dL (1.8-2.4) Total Bilirubin 0.3 mg/dL (0.2-1.0) Aspartate Amino Transf (AST/SGOT) 25 U/L (15-37) Alanine Aminotransferase (ALT/SGPT) 34 U/L (16-63) Alkaline Phosphatase 39 U/L (46-116) Troponin I High Sensitivity 7 ng/L (4-75) Total Protein 7.0 g/dL (6.4-8.2) Albumin 3.7 g/dL (3.4-5.0) Albumin/Globulin Ratio 1.1 (1.0-1.7) Salicylates Level 4.7 mg/dL (2.8-20.0) Salicylate Last Dose Date Salicylate Last Dose Time Acetaminophen Level < 2 mcg/ml (10-30) Acetaminophen Last Dose Date Acetaminophen Last Dose Time Ethyl Alcohol Level < 10 mg/dL (0-10) Urine Opiates Screen Neg (NEG) Urine Methadone Screen Neg (NEG) Urine Barbiturates Neg (NEG) Urine Phencyclidine Screen Neg (NEG) Urine Amphetamine/Methamphetamine Neg (NEG) Urine Benzodiazepines Screen Neg (NEG) Urine Cocaine Screen Neg (NEG) Urine Cannabinoids Screen Pos (NEG) Urine Ethyl Alcohol Neg (NEG) Brief Hospital Course Mr. Hu is a 46 old male who presented with unintentional drug overdose. History of similar episode in 09/24/2021. States he took all of his medications at once, including amitriptyline, amlodipine, ibuprofen, and an old [place]. We discussed deprescribing his medications, and he will follow-up with his PCP to do just that. He is a sole provider for his 2 daughters at home, and he states recently his brother did pass away, but states this has no bearing on why he was admitted. I will discontinue any further gabapentin his home medication list upon discharge. He was discharged home with family care. Discharge Information Condition at Discharge: Improved Disposition/Orders: D/C to Home Scheduled Albuterol Sulfate (Ventolin Hfa Inhaler) 18 Gm Hfa.aer.ad, 2 PUFF INH QID for FOR ASTHMA, Ref 0 (Reported) Entered as Reported by: ADONIS MADERA on 11/02/21637 Last Action: New Order on 11/02/21637 by ADONIS MADERA Amitriptyline Hcl (Amitriptyline Hcl) 25 Mg Tablet, 25 MG PO DAILY for , (Reported) Entered as Reported by: ADONIS MADERA on 11/02/21632 Last Action: New Order on 11/02/21632 by ADONIS MADERA Amlodipine Besylate (Norvasc) 10 Mg Tablet, 10 MG PO DAILY for HTN, (Reported) Entered as Reported by: ADONIS MADERA on 11/02/21632 Last Action: New Order on 11/02/21632 by ADONIS MADERA Lisinopril (Lisinopril) 10 Mg Tablet, 10 MG PO DAILY for FOR HYPERTENSION, #30 Ref 0 (Reported) Entered as Reported by: ADONIS MADERA on 11/02/21633 Last Action: New Order on 11/02/21633 by ADONIS MADERA Scheduled PRN Acetaminophen (Tylenol) 325 Mg Tablet, 650 MG PO Q6HRS PRN for pain/temp, (Reported) Entered as Reported by: ADONIS MADERA on 11/02/21636 Last Action: New Order on 11/02/21636 by ADONIS MADERA Ibuprofen (Ibuprofen) 800 Mg Tablet, 800 MG PO PRN Q6HRS PRN for INFLAMMATION, (Reported) Entered as Reported by: ADONIS MADERA on 11/02/21636 Last Action: New Order on 11/02/21636 by ADONIS MADERA Discontinued Medications Gabapentin (Gabapentin ) 400 Mg Capsule, 400 MG PO TID for NEUROGENIC PAIN, (Reported) Entered as Reported by: ADONIS MADERA on 11/02/21634 Last Action: New Order on 11/02/21634 by ADONIS MADERA Justicifation of Admission Dx: Justifications for Admission: Justification of Admission Dx: Yes PATTI DAMON MD November 02, 2021 10:32
[2021-11-02 11:00] VITALS: BP 117/47
--- NOTE | 2021-11-02 12:21 | NUR ---
Discharge Note: EVELYN PERALES [address] Discharge instructions and discharge home medications reviewed with Patient and a copy given. All questions have been answered and understanding verbalized. The following instructions and handouts were given: discharge instructions, education and follow up recommendations. Discontinued lines and drains: Peripheral IV discontinued intact. Patient discharged to Home or Self Care with Family Member via Ambulated off unit by this RN.
[2021-11-03 02:21] LABS: HEMOGLOBIN A1C 6.2 % (4.8-5.6)
== END 2021-11-02 12:21 | disposition home or self-care (01) ==
LOC: ER 00:52 → 6 SOUTH 03:49 → INTOOBSV 03:49
PROVIDERS: ADMIT Internal Medicine; ATTEND Internal Medicine
DX: J96.01 Acute respiratory failure with hypoxia (principal); T42.6X1A Poisoning by other antiepileptic and sedative-hypnotic drugs, accidental (unintentional), initial encounter; T46.1X1A Poisoning by calcium-channel blockers, accidental (unintentional), initial encounter; T39.311A Poisoning by propionic acid derivatives, accidental (unintentional), initial encounter; T39.1X1A Poisoning by 4-Aminophenol derivatives, accidental (unintentional), initial encounter; T40.2X1A Poisoning by other opioids, accidental (unintentional), initial encounter; I10 Essential (primary) hypertension; G89.29 Other chronic pain; M54.9 Dorsalgia, unspecified; J45.909 Unspecified asthma, uncomplicated; F17.200 Nicotine dependence, unspecified, uncomplicated; Z79.899 Other long term (current) drug therapy; Z98.890 Other specified postprocedural states; X50.0XXA Overexertion from strenuous movement or load, initial encounter; Y92.89 Other specified places as the place of occurrence of the external cause; Y93.89 Activity, other specified; Y99.8 Other external cause status
CPT/HCPCS: 36415; 71045; 80053; 80307; 80329; 83036; 83735; 84484; 85025; 93005; 96360; 99285; G0378; G0480; J7030; G0379